=== PATIENT | female | born 1970 | race Caucasian/White ===

== ENCOUNTER → 2016-08-15 | Outpatient (CLI) | payer OTHER ==
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
--- NOTE | 2016-08-15 19:09 | XR ---
EXAMINATION TYPE: XR lumbar spine 2 or 3V DATE OF EXAM: 08/15/2016 6:31 PM COMPARISON: NONE HISTORY: Back pain, trauma TECHNIQUE: 3 views FINDINGS: Lumbar vertebrae abnormal spacing and alignment. Posterior elements are intact. Sacroiliac joints are normal. There are clips from cholecystectomy. IMPRESSION: Negative lumbar spine exam. No fracture.
--- NOTE | 2016-08-15 19:10 | XR ---
EXAMINATION TYPE: XR tibia fibula RT DATE OF EXAM: 08/15/2016 6:31 PM COMPARISON: NONE HISTORY: Pain, trauma. TECHNIQUE: 3 views FINDINGS: I see no fracture nor dislocation. Knee joint and ankle joint appear intact. IMPRESSION: Negative right tibia and fibula exam.
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
== END | disposition home or self-care (01) ==
LOC: RADCTMAIN 17:59
PROVIDERS: ATTEND Nurse Practitioner Family
DX: S19.9XXA Unspecified injury of neck, initial encounter (principal); M79.661 Pain in right lower leg; S39.92XA Unspecified injury of lower back, initial encounter; K76.9 Liver disease, unspecified
CPT/HCPCS: 72050; 72100; 73590; 74177; Q9967

== ENCOUNTER 2016-12-18 03:04 | Emergency (ER) | payer OTHER ==
[2016-12-18 03:11] VITALS: TEMP 97
[2016-12-18] MEDS ORDERED: ASPIRIN 81 MG CHEW PO STA (03:33)
[2016-12-18] MEDS ORDERED: MORPHINE SULFATE 4 MG/ML SYRINGE IV STA (03:38)
[2016-12-18 03:53] LABS: Basophils % (A) 1 %; CH 32.2; CHCM 36.3; Eosinophils # (A) 0.2 k/uL (0-0.7); Eosinophils % (A) 3 %; HCT 42.4 % (34.0-46.0); HDW 3.04; Luc # (Auto) 0.12; Luc % (Auto) 2; Lymphocytes % (A) 16 %; MCH 31.5 pg (25.0-35.0); MCHC 35.4 g/dL (31.0-37.0); MCV 89.2 fL (80.0-100.0); Mean Platelet Volume 7.1; Monocytes # (A) 0.4 k/uL (0-1.0); Monocytes % (A) 6 %; Neutrophils # (A) 4.7 k/uL (1.3-7.7); Neutrophils % (A) 73 %; RBC 4.75 m/uL (3.80-5.40); RDW 13.3 % (11.5-15.5); WBC 6.3 k/uL (3.8-10.6)
[2016-12-18 04:04] LABS: ALT 33 U/L (9-52); AST 20 U/L (14-36); Alkaline Phosphatase 76 U/L (38-126); Anion Gap 12 mmol/L; Blood Urea Nitrogen 14 mg/dL (7-17); Calcium 9.4 mg/dL (8.4-10.2); Carbon Dioxide 24 mmol/L (22-30); Chloride 105 mmol/L (98-107); Glucose 121 mg/dL (74-99); Magnesium 1.9 mg/dL (1.6-2.3); Non-African American GFR(MDRD) >60 (>60 ml/min/1.73 sqM); Sodium 141 mmol/L (137-145); Total Bilirubin 1.5 mg/dL (0.2-1.3)
[2016-12-18 04:10] LABS: Partial Thromboplastin Time 24.4 sec (22.0-30.0); Prothrombin Time 10.3 sec (9.0-12.0)
--- NOTE | 2016-12-18 04:32 | XR ---
EXAM: XR Chest, 2 Views CLINICAL HISTORY: Reason: Chest Pain TECHNIQUE: Frontal and lateral views of the chest. COMPARISON: No relevant prior studies available. FINDINGS: Lungs: Unremarkable. No consolidation. Pleural space: Unremarkable. No pneumothorax. Heart: Unremarkable. No cardiomegaly. Mediastinum: Unremarkable. Bones/joints: Unremarkable. Tubes, lines and devices: Overlying chest leads obscure portion of the chest. IMPRESSION: No acute findings.
--- NOTE | 2016-12-18 04:41 | ED ---
Chest Pain HPI - General Chief Complaint: Chest Pain Stated Complaint: anxiety Time Seen by Provider: 12/18/16 03:32 Source: patient Mode of arrival: ambulatory Limitations: no limitations - History of Present Illness Initial Comments: Patient complains of intermittent chest pain. Nothing makes her symptoms better or worse. She was not doing anything when this began. She took the medication for the symptoms. She denies any recent illnesses or sick contacts. She has no palpitations. She has no lightheadedness or dizziness. She has no pain or swelling in the legs. She has no palpitations. She denies any recent long plane or car rides. She has no nausea or vomiting. She has no diaphoresis. - Related Data Home Medications Medication Instructions Recorded Confirmed LORazepam [Ativan] 1 mg PO DAILY PRN 12/18/16 12/18/16 Allergies Allergy/AdvReac Type Severity Reaction Status Date / Time codeine Allergy Rash/Nightm Verified 12/18/16 03:12 sergio sulfite Allergy Rash/Hives Verified 12/18/16 03:12 Review of Systems ROS Statement: Those systems with pertinent positive or pertinent negative responses have been documented in the HPI. ROS Other: All systems not noted in ROS Statement are negative. EKG Findings - EKG Comments: EKG Findings:: Twelve-lead EKG is obtained, interpreted by me showing ventricular 80 bpm, normal SD interval and QRS complexes, no ST elevation or depression, interpreted by me as normal sinus rhythm. Past Medical History Past Medical History: GERD/Reflux, Neurologic Disorder, Thyroid Disorder Additional Past Medical History / Comment(s): FREQUENT MIGRAINES,. REFLUX MAJOR PAIN IN STOMACH DAILY. Lymphoma History of Any Multi-Drug Resistant Organisms: None Reported Past Surgical History: Cholecystectomy, Tubal Ligation Additional Past Surgical History / Comment(s): colonoscopy,EGD Past Anesthesia/Blood Transfusion Reactions: Postoperative Nausea & Vomiting ( PONV) Additional Past Anesthesia/Blood Transfusion Reaction / Comment(s): PT & PT'S MOM ALSO HAVE HX PONV Past Psychological History: Anxiety, Depression, Panic Disorder Smoking Status: Light tobacco smoker Past Alcohol Use History: Occasional Past Drug Use History: None Reported - Past Family History Father Family Medical History: Cancer General Exam Limitations: no limitations General appearance: alert, in no apparent distress Head exam: Present: atraumatic, normocephalic, normal inspection Eye exam: Present: normal appearance, PERRL, EOMI. Absent: scleral icterus, conjunctival injection, periorbital swelling ENT exam: Present: normal exam, mucous membranes moist Neck exam: Present: normal inspection. Absent: tenderness, meningismus, lymphadenopathy Respiratory exam: Present: normal lung sounds bilaterally. Absent: respiratory distress, wheezes, rales, rhonchi, stridor Cardiovascular Exam: Present: regular rate, normal rhythm, normal heart sounds. Absent: systolic murmur, diastolic murmur, rubs, gallop, clicks GI/Abdominal exam: Present: soft, normal bowel sounds. Absent: distended, tenderness, guarding, rebound, rigid Extremities exam: Present: normal inspection, full ROM, normal capillary refill. Absent: tenderness, pedal edema, joint swelling, calf tenderness Back exam: Present: normal inspection Neurological exam: Present: alert, oriented X3, CN II-XII intact Psychiatric exam: Present: normal affect, normal mood Skin exam: Present: warm, dry, intact, normal color. Absent: rash Course Vital Signs 12/18/16 03:09 Temperature 97.0 F L Pulse Rate 18 L Respiratory 86 H Rate Blood Pressure 141/98 O2 Sat by Pulse 98 Oximetry Chest Pain MDM - MDM Patient complains of intermittent chest pain. It is not related to exertion. She has no shortness of breath. There are no specific exacerbating or relieving factors. Her EKG is normal. Her labs are normal. Her 2 view chest x -ray is normal. I cannot find evidence of any acute emergency condition. She does not require admission to the hospital area and she is stable for outpatient follow-up with her physician. Disposition Clinical Impression: Chest pain Disposition: HOME SELF-CARE Condition: Good Instructions: Chest Pain (ED) Time of Disposition: 04:41
[2016-12-18 04:53] VITALS: BP 133/73; PULSE 87; RESP 16
== END 2016-12-18 05:10 | disposition home or self-care (01) ==
LOC: EC 03:04
DX: R07.9 Chest pain, unspecified (principal); F17.200 Nicotine dependence, unspecified, uncomplicated; Z88.5 Allergy status to narcotic agent; Z88.8 Allergy status to other drugs, medicaments and biological substances; Z53.20 Procedure and treatment not carried out because of patient's decision for unspecified reasons
CPT/HCPCS: 36415; 71020; 80053; 83735; 83880; 84484; 85025; 85610; 85730; 93005; 99285

== ENCOUNTER 2017-05-28 08:48 | Day surgery (SDC) | payer OTHER ==
[2017-05-27 08:49] VITALS: BMI 25.0
[~2017-05-28 08:48] MED LIST: LACTATED RINGERS 1,000 ML IV SCH
[2017-05-28 09:42] VITALS: RESP 16; TEMP 98.2
[2017-05-28] MEDS ORDERED: PROPOFOL 10 MG/ML 20 ML VIAL IV ONE (10:20)
[2017-05-28] MEDS ORDERED: LIDOCAINE 1% INJ 10MG/ML (20 ML MDV) ONE (10:20)
--- NOTE | 2017-05-28 10:48 | P.PCN ---
Date of Procedure: 05/28/17 Procedure(s) Performed: BRIEF HISTORY: Patient is a 46-year-old pleasant white female, scheduled for an elective colonoscopy as a part of the lesion of prior history of colon polyps. Her last colonoscopy was in 2013 and she was noted to have 2 rectal polyps and biopsies revealed MALT lymphoma. She subsequently underwent radiation therapy and she follows with on the regular basis. PROCEDURE PERFORMED: Colonoscopy with snare polypectomy. PREOPERATIVE DIAGNOSIS: Follow-up of rectal MALT lymphoma. IV sedation per Anesthesia. PROCEDURE: After informed consent was obtained, the patient, was brought into the endoscopy unit. IV sedation was administered by Anesthesia under continuous monitoring. Digital rectal examination was normal. Initially the Olympus CF- 160 flexible video colonoscope was then inserted in the rectum, gradually advanced into the cecum without any difficulty. Careful examination was performed as the scope was gradually being withdrawn. Ileocecal valve and the appendiceal orifice were visualized and appeared normal. Prep was excellent. Mucosa of the cecum, ascending colon, transverse colon, descending colon, sigmoid colon, and rectum appeared normal. In the proximal rectum at the 15 cm from the anal verge there was a 7-8 mm polyp removed by snare polypectomy. Retroflexion was performed in the rectum and no lesions were seen. The patient tolerated the procedure well. IMPRESSION: 7-8 mm proximal rectal polyp serous was snare polypectomy Rest of the colon appeared normal. RECOMMENDATIONS: Findings of this examination were discussed with the patient as well as a family. She was advised to follow with the biopsy results. She can have a repeat colonoscopy in 3-5 years.
[2017-05-28 11:28] VITALS: BP 114/72; PULSE 78
== END 2017-05-28 11:26 | disposition home or self-care (01) ==
LOC: ORWHC2ENDO 08:48
PROVIDERS: ATTEND Internal Medicine Gastroenterology
DX: Z12.11 Encounter for screening for malignant neoplasm of colon (principal); D12.8 Benign neoplasm of rectum; Z86.010 Personal history of colon polyps; C88.4 Extranodal marginal zone B-cell lymphoma of mucosa-associated lymphoid tissue [MALT-lymphoma]; Z92.3 Personal history of irradiation; I10 Essential (primary) hypertension; Z87.891 Personal history of nicotine dependence; F41.9 Anxiety disorder, unspecified; K21.9 Gastro-esophageal reflux disease without esophagitis; Z79.899 Other long term (current) drug therapy
CPT/HCPCS: 88305; 45385; J2001; J2704

== ENCOUNTER → 2017-08-17 | Outpatient (CLI) | payer OTHER ==
--- NOTE | 2017-08-17 16:46 | CT ---
EXAMINATION TYPE: CT ChestAbdPelvis w con DATE OF EXAM: 08/17/2017 COMPARISON: 08/15/2016 HISTORY: Follow up for "malt" lymphoma of colon and history of hemangiomas to liver. CT DLP: 767.20 mGycm Automated exposure control for dose reduction was used. CONTRAST: CT scan of the chest, abdomen and pelvis is performed with Oral Contrast and with IV Contrast, patien t injected with 100 mL of Omnipaque 300. FINDINGS: LUNGS: The lungs are grossly clear, there is no concerning parenchymal mass or nodule identified. T here is no pleural effusion or pneumothorax seen. The tracheobronchial tree is patent. MEDIASTINUM: There are no greater than 1 cm hilar or mediastinal lymph nodes. No pericardial effusi on is seen. OTHER: No additional significant abnormality is seen. LIVER/GB: There are multiple intrahepatic nodules with the largest seen in the left lobe of the liver measuring 2.5 x 2.5 cm and stable from the previous exam approximately 4 lesions are seen. All appea r to be stable in size relative to the previous exam. There is incomplete filling of these lesions on delayed imaging. Most likely in the basis of hemangioma but tagged RBC study or MRI suggested. PANCREAS: No significant abnormality is seen. SPLEEN: No significant abnormality is seen. ADRENALS: No significant abnormality is seen. KIDNEYS: No significant abnormality is seen. BOWEL: Gas pattern nonspecific. Significant retained fecal debris within the colon.. LYMPH NODES: No greater than 1 cm abdominal or pelvic lymph nodes are appreciated. OSSEOUS STRUCTURES: No significant abnormality is seen. OTHER: Aorta of normal caliber. Postsurgical change in the pelvis noted IMPRESSION: 1. Hepatic lesions are stable and most typical of hemangioma and could be confirmed with tagged RBC s yissel. However, findings are seen dating back to 2014. Therefore likely related to hemangioma. 2. No pathologic adenopathy
== END | disposition home or self-care (01) ==
LOC: RADCTMAIN 13:22
PROVIDERS: ATTEND Internal Medicine Hematology & Oncology
DX: K76.9 Liver disease, unspecified (principal); D18.03 Hemangioma of intra-abdominal structures
CPT/HCPCS: 71260; 74177; Q9967

== ENCOUNTER 2017-12-14 12:44 | Emergency (ER) | payer OTHER ==
--- NOTE | 2017-12-14 12:43 | CT ---
EXAMINATION TYPE: CT abdomen wo/w con DATE OF EXAM: 12/14/2017 HISTORY: Hematuria, Right lower quadrant pain for 5.[address] DLP: 1510mGycm Automated Exposure Control for Dose Reduction was Utilized. CONTRAST: CT scan of the abdomen is performed without and with IV Contrast, patient injected with 100 ml mL of Isovue 300. COMPARISON: Exams dating back to 06/04/2015. FINDINGS: LUNG BASES: No significant abnormality is appreciated. LIVER/GB: There is redemonstration of multiple hypoattenuated hepatic lesions seen on prior exams shola ing back to 06/04/2015 with stability of size previously demonstrated to represent hemangiomas.. Gall bladder surgically absent. PANCREAS: No significant abnormality is seen. No ductal dilatation. SPLEEN: No significant abnormality is seen. No splenomegaly. ADRENALS: No significant abnormality is seen. No nodularity or thickening. KIDNEYS: There is mild right-sided hydronephrosis and proximal ureteral dilatation. Distal right uret er is not visualized and no obstructing stone is visualized on the given abdomen images. The right ki dney also shows delayed enhancement in comparison to the left that may relate to acute obstruction. BOWEL: No right lower quadrant fat stranding changes are seen. No adenopathy or fluid collection. Wha t appears to be the appendix is air-filled and within normal limits. Terminal ileum is unremarkable. No evidence of dilated bowel. Transverse colon and ascending colon are partially decompressed. No per icolonic fluid collection in its visualized portions. LYMPH NODES: No greater than 1cm abdominal or pelvic lymph nodes are appreciated. OSSEOUS STRUCTURES: Osseous structures are grossly intact. OTHER: There is diastases recti. IMPRESSION: Mild right hydroureteronephrosis and altered physiology of the right kidney both most com patible with acute obstruction although the pelvis is not performed and distal ureter is not evaluate d for obstructing calculus or mass. No CT evidence of acute appendicitis.
[2017-12-14] MEDS ORDERED: MORPHINE SULFATE 4 MG/ML SYRINGE IVP STA (13:20)
[2017-12-14] MEDS ORDERED: ONDANSETRON 4 MG/2 ML VIAL IVP STA (13:20)
[2017-12-14 13:22] LABS: Basophils % (A) 0 %; Eosinophils # (A) 0.1 k/uL (0-0.7); Eosinophils % (A) 1 %; HCT 45.2 % (34.0-46.0); HGB 15.8 gm/dL (11.4-16.0); Lymphocytes # (A) 0.8 k/uL (1.0-4.8); Lymphocytes % (A) 6 %; MCH 30.4 pg (25.0-35.0); MCHC 34.9 g/dL (31.0-37.0); MCV 87.3 fL (80.0-100.0); Mean Platelet Volume 7.8; Monocytes # (A) 0.4 k/uL (0-1.0); Monocytes % (A) 3 %; Neutrophils # (A) 13.1 k/uL (1.3-7.7); Neutrophils % (A) 90 %; Platelet Count 277 k/uL (150-450); RBC 5.18 m/uL (3.80-5.40); RDW 12.6 % (11.5-15.5); WBC 14.5 k/uL (3.8-10.6)
[2017-12-14 13:27] LABS: Appearance,Urine Clear (Clear); Bacteria,Urine Rare /hpf; Bilirubin,Urine Negative (Negative); Blood,Urine Moderate (Negative); Color,Urine Yellow; Glucose,Urine (UA) Negative (Negative); Ketones,Urine 1+ (Negative); Leukocyte Esterase,Urine Negative (Negative); Mucus,Urine Rare /hpf; Nitrite,Urine Negative (Negative); Protein,Urine 2+ (Negative); RBC,Urine 12 /hpf (0-5); Squamous Epithelial Cell,Urine 3 /hpf (0-4); WBC,Urine <1 /hpf (0-5)
[2017-12-14 13:30] LABS: Specific Gravity,Urine >1.050 (1.001-1.035)
[2017-12-14 13:40] LABS: Albumin 4.6 g/dL (3.5-5.0); Calcium 10.4 mg/dL (8.4-10.2); Potassium 4.3 mmol/L (3.5-5.1); Total Bilirubin 1.4 mg/dL (0.2-1.3); Total Protein 7.1 g/dL (6.3-8.2)
--- NOTE | 2017-12-14 13:45 | ED ---
Abdominal Pain HPI - General Chief Complaint: Abdominal Pain Time Seen by Provider: 12/14/17 13:11 Source: patient, RN notes reviewed Mode of arrival: ambulatory Limitations: no limitations - History of Present Illness Initial Comments: This a 47-year-old female presents emergency Department chief complaint right flank pain. Patient states pain started this morning. Patient states that she went to PCPs office to ordered a CT of her abdomen. Patient had complete the CT at the hospital and was sent here for further evaluation. CT shows obstructing type pattern on the right kidney no known evaluation of distal ureter secondary to no CT of the pelvis. Patient admits to some nausea no vomiting no diarrhea no constipation. Has no history of kidney stones denies any dysuria or urinary frequency. Patient states nothing makes the pain feel better or worse at this time. - Related Data Home Medications Medication Instructions Recorded Confirmed Diltiazem HCl [Cartia Xt] 120 mg PO HS 05/27/17 12/14/17 LORazepam [Ativan] 2 mg PO HS 05/27/17 12/14/17 Almotriptan Malate [Axert] 12.5 mg PO DAILY PRN 12/14/17 12/14/17 Dextroamphetamine/Amphetamine 30 mg PO QAM 12/14/17 12/14/17 [Adderall Xr] Previous Rx's Medication Instructions Recorded Hydrocodone/Acetaminophen [[place] 1 tab PO Q6HR PRN #12 tab 12/14/17 5-325] Ibuprofen [Motrin] 600 mg PO Q8HR PRN #30 tab 12/14/17 Ondansetron Odt [Zofran Odt] 4 mg PO Q8HR PRN #10 tab 12/14/17 Tamsulosin [Flomax] 0.4 mg PO DAILY #7 cap 12/14/17 Allergies Allergy/AdvReac Type Severity Reaction Status Date / Time Beta-Blockers Allergy Rash/Hives Verified 12/14/17 13:19 (Beta-Adrenergic Bloc codeine Allergy Rash/Nightm Verified 12/14/17 13:19 sergio Sulfa (Sulfonamide Allergy Rash/Hives Verified 12/14/17 13:19 Antibiotics) sulfite Allergy Rash/Hives Verified 12/14/17 13:19 Review of Systems ROS Statement: Those systems with pertinent positive or pertinent negative responses have been documented in the HPI. ROS Other: All systems not noted in ROS Statement are negative. Past Medical History Past Medical History: Cancer, GERD/Reflux, Hypertension, Liver Disease, Neurologic Disorder, Thyroid Disorder Additional Past Medical History / Comment(s): MIGRAINES, Lymphoma, 4 liver hemagiomas, chronic UTI's History of Any Multi-Drug Resistant Organisms: None Reported Past Surgical History: Cholecystectomy, Tubal Ligation Additional Past Surgical History / Comment(s): colonoscopy,EGD, lasik eye surgery Past Anesthesia/Blood Transfusion Reactions: Postoperative Nausea & Vomiting ( PONV) Additional Past Anesthesia/Blood Transfusion Reaction / Comment(s): PT & PT'S MOM ALSO HAVE HX PONV Past Psychological History: Anxiety, Depression, Panic Disorder Smoking Status: Former smoker Past Alcohol Use History: Daily Past Drug Use History: None Reported - Past Family History Father Family Medical History: Cancer Mother Family Medical History: Deep Vein Thrombosis (DVT) General Exam Limitations: no limitations General appearance: alert, in no apparent distress, other (Patient appears uncomfortable) Head exam: Present: atraumatic, normocephalic, normal inspection Respiratory exam: Present: normal lung sounds bilaterally. Absent: respiratory distress, wheezes, rales, rhonchi, stridor Cardiovascular Exam: Present: normal rhythm, tachycardia, normal heart sounds. Absent: systolic murmur, diastolic murmur, rubs, gallop, clicks GI/Abdominal exam: Present: soft, tenderness (Mild right-sided/right flank), normal bowel sounds. Absent: distended, guarding, rebound, rigid Back exam: Present: CVA tenderness (R). Absent: CVA tenderness (L) Skin exam: Present: warm, dry, intact, normal color. Absent: rash Course Vital Signs 12/14/17 12:47 Temperature 97.1 F L Pulse Rate 104 H Respiratory 20 Rate Blood Pressure 145/84 O2 Sat by Pulse 100 Oximetry Medical Decision Making - Medical Decision Making 47-year-old female presented for right flank pain. Patient outpatient CT showed possible obstructing process consider stone. Patient ultrasound consistent with mild higher nephrosis and small calculus. Patient states that she urinated here in emergency department states that all over since resolved. Patient we discharged with pain medication, antiemetics, Flomax. She'll follow up with urology and return for any worsening symptoms. - Lab Data Result diagrams: 12/14/17 13:02 12/14/17 13:02 Lab Results 12/14/17 12/14/17 12/14/17 Range/Units 13:02 13:02 13:02 WBC 14.5 H (3.8-10.6) k/uL RBC 5.18 (3.80-5.40) m/uL Hgb 15.8 (11.4-16.0) gm/dL Hct 45.2 (34.0-46.0) % MCV 87.3 (80.0-100.0) fL MCH 30.4 (25.0-35.0) pg MCHC 34.9 (31.0-37.0) g/dL RDW 12.6 (11.5-15.5) % Plt Count 277 (150-450) k/uL Neutrophils % 90 % Lymphocytes % 6 % Monocytes % 3 % Eosinophils % 1 % Basophils % 0 % Neutrophils # 13.1 H (1.3-7.7) k/uL Lymphocytes # 0.8 L (1.0-4.8) k/uL Monocytes # 0.4 (0-1.0) k/uL Eosinophils # 0.1 (0-0.7) k/uL Basophils # 0.0 (0-0.2) k/uL Sodium 137 (137-145) mmol/L Potassium 4.3 (3.5-5.1) mmol/L Chloride 101 (98-107) mmol/L Carbon Dioxide 22 (22-30) mmol/L Anion Gap 14 mmol/L BUN 16 (7-17) mg/dL Creatinine 0.90 (0.52-1.04) mg/dL Est GFR (CKD-EPI)AfAm 89 (>60 ml/min/1.73 sqM) Est GFR (CKD-EPI)NonAf 77 (>60 ml/min/1.73 sqM) Glucose 126 H (74-99) mg/dL Calcium 10.4 H (8.4-10.2) mg/dL Total Bilirubin 1.4 H (0.2-1.3) mg/dL AST 22 (14-36) U/L ALT 30 (9-52) U/L Alkaline Phosphatase 94 (38-126) U/L Total Protein 7.1 (6.3-8.2) g/dL Albumin 4.6 (3.5-5.0) g/dL Lipase (23-300) U/L Urine Color Yellow Urine Appearance Clear (Clear) Urine pH 6.0 (5.0-8.0) Ur Specific [place] >1.050 H (1.001-1.035) Urine Protein 2+ H (Negative) Urine Glucose (UA) Negative (Negative) Urine Ketones 1+ H (Negative) Urine Blood Moderate H (Negative) Urine Nitrite Negative (Negative) Urine Bilirubin Negative (Negative) Urine Urobilinogen 2.0 (<2.0) mg/dL Ur Leukocyte Esterase Negative (Negative) Urine RBC 12 H (0-5) /hpf Urine WBC <1 (0-5) /hpf Ur Squamous Epith Cells 3 (0-4) /hpf Urine Bacteria Rare H (None) /hpf Urine Mucus Rare H (None) /hpf 12/14/17 Range/Units 13:02 WBC (3.8-10.6) k/uL RBC (3.80-5.40) m/uL Hgb (11.4-16.0) gm/dL Hct (34.0-46.0) % MCV (80.0-100.0) fL MCH (25.0-35.0) pg MCHC (31.0-37.0) g/dL RDW (11.5-15.5) % Plt Count (150-450) k/uL Neutrophils % % Lymphocytes % % Monocytes % % Eosinophils % % Basophils % % Neutrophils # (1.3-7.7) k/uL Lymphocytes # (1.0-4.8) k/uL Monocytes # (0-1.0) k/uL Eosinophils # (0-0.7) k/uL Basophils # (0-0.2) k/uL Sodium (137-145) mmol/L Potassium (3.5-5.1) mmol/L Chloride (98-107) mmol/L Carbon Dioxide (22-30) mmol/L Anion Gap mmol/L BUN (7-17) mg/dL Creatinine (0.52-1.04) mg/dL Est GFR (CKD-EPI)AfAm (>60 ml/min/1.73 sqM) Est GFR (CKD-EPI)NonAf (>60 ml/min/1.73 sqM) Glucose (74-99) mg/dL Calcium (8.4-10.2) mg/dL Total Bilirubin (0.2-1.3) mg/dL AST (14-36) U/L ALT (9-52) U/L Alkaline Phosphatase (38-126) U/L Total Protein (6.3-8.2) g/dL Albumin (3.5-5.0) g/dL Lipase 132 (23-300) U/L Urine Color Urine Appearance (Clear) Urine pH (5.0-8.0) Ur Specific [place] (1.001-1.035) Urine Protein (Negative) Urine Glucose (UA) (Negative) Urine Ketones (Negative) Urine Blood (Negative) Urine Nitrite (Negative) Urine Bilirubin (Negative) Urine Urobilinogen (<2.0) mg/dL Ur Leukocyte Esterase (Negative) Urine RBC (0-5) /hpf Urine WBC (0-5) /hpf Ur Squamous Epith Cells (0-4) /hpf Urine Bacteria (None) /hpf Urine Mucus (None) /hpf Disposition Clinical Impression: Ureteral calculi, Hematuria, Flank pain Disposition: HOME SELF-CARE Condition: Stable Instructions: Kidney Stones (ED) Additional Instructions: Please return to the Emergency Department if symptoms worsen or any other concerns. Prescriptions: Hydrocodone/Acetaminophen [[place] 5-325] 1 tab PO Q6HR PRN #12 tab PRN Reason: Pain Ibuprofen [Motrin] 600 mg PO Q8HR PRN #30 tab PRN Reason: Pain Ondansetron Odt [Zofran Odt] 4 mg PO Q8HR PRN #10 tab PRN Reason: Nausea Tamsulosin [Flomax] 0.4 mg PO DAILY #7 cap Is patient prescribed a controlled substance at d/c from ED?: Yes If prescribed controlled substance>3 days was MAPS reviewed?: No When asked, does pt state using other controlled substances?: Yes Referrals: Irinoe Brown MD [Primary Care Provider] - 1-2 days Herman Graham MD [STAFF PHYSICIAN] - 1-2 days Time of Disposition: 14:55
--- NOTE | 2017-12-14 14:30 | US ---
EXAMINATION TYPE: US kidneys/renal and bladder DATE OF EXAM: 12/14/2017 COMPARISON: CT abdomen earlier today CLINICAL HISTORY: Pain. EXAM MEASUREMENTS: Right Kidney: 9.9 x 5.3 x 4.6 cm Left Kidney: 11.4 x 4.4 x 4.9 cm Right Kidney: There is an echogenic foci measuring 0.3 x 0.2 x 0.2cm, Inferior pole partially obscur ed by bowel gas, measures smaller than left, this may be due to obscuring bowel gas Left Kidney: No hydronephrosis or masses seen Bladder: not fully distended Bilateral Jets seen: Right jet seen There is stable mild right-sided hydronephrosis. There is no left-sided hydronephrosis Technologist m arks 3 mm hyperechoic focus mid pole level right kidney, no corresponding calculus is seen on CT. No masses are identified on images saved. The urinary bladder is not greatly distended. Bilateral ure teral jets are not seen. IMPRESSION: Persistent mild right-sided hydronephrosis, suspect partially obstructing tiny distal right ureter ca lculus given visualization of distal right ureter jet.
[2017-12-14 15:05] VITALS: BP 137/87; PULSE 87; RESP 18; TEMP 98.7
== END 2017-12-14 15:05 | disposition home or self-care (01) ==
LOC: EC 12:44
DX: N20.1 Calculus of ureter (principal); R00.0 Tachycardia, unspecified; I10 Essential (primary) hypertension; F41.0 Panic disorder [episodic paroxysmal anxiety]; Z87.891 Personal history of nicotine dependence; Z79.899 Other long term (current) drug therapy; Z88.2 Allergy status to sulfonamides; Z88.5 Allergy status to narcotic agent; Z88.8 Allergy status to other drugs, medicaments and biological substances; Z91.048 Other nonmedicinal substance allergy status; Z90.49 Acquired absence of other specified parts of digestive tract
CPT/HCPCS: 36415; 80053; 83690; 85025; 81001; 87086; 76770; 74170; 99284; 96374; 96375; J2270; J2405; Q9967

== ENCOUNTER → 2017-12-16 | Outpatient (CLI) | payer OTHER ==
--- NOTE | 2017-12-16 09:25 | XR ---
EXAMINATION TYPE: XR foot complete RT DATE OF EXAM: 12/16/2017 COMPARISON: NONE HISTORY: Pain TECHNIQUE: Three views are submitted. FINDINGS: The osseous structures are intact. There is no acute fracture or dislocation. Mild arthropathy of the first MTP joint. IMPRESSION: 1. No acute fracture or dislocation. If symptoms persist, follow-up exam in 7 to 10 days could be ob tained.
--- NOTE | 2017-12-16 09:39 | XR ---
EXAMINATION TYPE: XR KUB DATE OF EXAM: 12/16/2017 COMPARISON: Ultrasound 12/14/2017, CT scan 12/14/2017 HISTORY: Pain TECHNIQUE: One view abdominal series FINDINGS: The osseous structures are intact. The bowel gas pattern is nonspecific. Postsurgical change right u pper quadrant and the pelvis. Extensive retained fecal debris throughout the colon. IMPRESSION: 1. Nonspecific abdomen. Correlate for constipation. 2. No suspicious appearing calcifications identified. Note is made there is extensive retained fecal debris which could obscure the bilateral renal outlines. Renal stone involving the lower pole the rig ht kidney noted by recent CT scan is likely obscured by bowel content.
== END | disposition home or self-care (01) ==
LOC: RADXRMAIN 08:35
PROVIDERS: ATTEND Urology
DX: K59.00 Constipation, unspecified (principal); E83.52 Hypercalcemia; M79.671 Pain in right foot; N13.30 Unspecified hydronephrosis
CPT/HCPCS: 36415; 74018; 82310; 83970

== ENCOUNTER 2018-06-02 09:36 | Day surgery (SDC) | payer OTHER ==
[2018-05-31 17:11] VITALS: BMI 26.6
[~2018-06-02 09:36] MED LIST changes: +LIDOCAINE 1% 20 ML VIAL (10MG/ML) FOR IV START INTRADERMA PRN
[2018-06-02 10:29] VITALS: RESP 16; TEMP 98
[2018-06-02] MEDS ORDERED: PROPOFOL 10 MG/ML 20 ML VIAL IV ONE (10:59)
--- NOTE | 2018-06-02 11:17 | P.PCN ---
Date of Procedure: 06/02/18 Procedure(s) Performed: BRIEF HISTORY: Patient is a 47-year-old pleasant white female scheduled for an elective colonoscopy as a part of change in bowel habits. Lately she is been having alternating diarrhea and constipation. 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 She scattered for surveillance colonoscopy today. PROCEDURE PERFORMED: Colonoscopy. PREOPERATIVE DIAGNOSIS: Follow-up rectal MALT lymphoma, change in bowel habits. IV sedation per Anesthesia. PROCEDURE: After informed consent was obtained, the patient, was brought into the endoscopy unit. IV sedation was administered by Anesthesia under continuous monitoring. Digital rectal examination was normal. Initially the Olympus CF- 160 flexible video colonoscope was then inserted in the rectum, gradually advanced into the cecum without any difficulty. Careful examination was performed as the scope was gradually being withdrawn. Ileocecal valve and the appendiceal orifice were visualized and appeared normal. Prep was excellent. Mucosa of the cecum, ascending colon, transverse colon, descending colon, sigmoid colon, and rectum appeared normal. Scattered sigmoid diverticulosis seen Retroflexion was performed in the rectum and no lesions were seen. The patient tolerated the procedure well. IMPRESSION: Normal-appearing colon from rectum to cecum with no evidence of colorectal neoplasia. Scattered sigmoid diverticulosis RECOMMENDATIONS: Findings of this examination were discussed with the patient last a family. She was advised to be a high-fiber diet and take fiber supplements a regular basis. She can have a repeat colonoscopy in 3 years.
[2018-06-02 11:53] VITALS: BP 102/74; PULSE 72
== END 2018-06-02 12:14 | disposition home or self-care (01) ==
LOC: ORWHC2ENDO 09:36
PROVIDERS: ATTEND Internal Medicine Gastroenterology
DX: K57.30 Diverticulosis of large intestine without perforation or abscess without bleeding (principal); K21.9 Gastro-esophageal reflux disease without esophagitis; Z79.899 Other long term (current) drug therapy; I10 Essential (primary) hypertension; Z87.891 Personal history of nicotine dependence; Z85.72 Personal history of non-Hodgkin lymphomas; G43.909 Migraine, unspecified, not intractable, without status migrainosus; Z88.5 Allergy status to narcotic agent; Z88.2 Allergy status to sulfonamides
CPT/HCPCS: 45378; J2704

== ENCOUNTER → 2018-07-20 | Outpatient (CLI) | payer OTHER ==
--- NOTE | 2018-07-20 13:17 | CT ---
EXAMINATION TYPE: CT ChestAbdPelvis w con DATE OF EXAM: 07/20/2018 INDICATION: Non follicular lymphoma COMPARISON: 12/14/2017 CT DLP: 667.9 mGycm CONTRAST: Performed with Oral Contrast and with IV Contrast, patient injected with 100 mL of Isovue 300. TECHNIQUE: Axial images at 5 mm thick sections. Reconstructed images in the coronal plane. Delayed images through the kidneys. FINDINGS: CT CHEST: Portion of the thyroid visualized is normal. This has intense uptake of the contrast and more subtle abnormalities may not be visualized. No suspicious lung nodules or focal infiltrates are present. No enlarged mediastinal or hilar adenopathy is evident. The ascending aorta diameter at the level of the main pulmonary artery is 3.0 cm. The main pulmonary artery diameter at the bifurcation is 2.[address] ABDOMEN: Liver: There are multiple hypodensities scattered within the right lobe liver. These appear to has so me central enhancement on delayed images. Neoplasm should be considered. Example images include 2.7 c m medial right lobe liver and mid anterior right lobe liver measuring 1.5 cm, series 3 image 50. Mid right lobe liver measuring 1.4 cm and 0.6 cm lateral right mid lobe liver, Series 3 image 51. These w ere present previously, interval growth is not evident. Spleen: Normal Pancreas: Normal Adrenal glands: The adrenal glands are normal. Gallbladder: Surgically absent Kidneys: No masses are evident. No hydronephrosis is present. No cysts are present. Delayed images were obtained through the kidneys, which remain unremarkable. Aorta: Normal Inferior vena cava: Normal. CT PELVIS: Loops of bowel within the abdomen and pelvis are normal. There are loops of bowel which are incom pletely distended or lack oral contrast limiting their evaluation. Appendix: Normal as visualized. Urinary bladder: Normal. Genitourinary structures: Uterus and adnexal regions appear normal. Osseous structures: No suspicious lytic or sclerotic lesions. Sacroiliac joint degenerative changes a nd vacuum phenomenon is present. Mild facet hypertrophy is in the lower lumbar spine. IMPRESSIONS: 1. Stable Scattered hypodensities within the liver. These were present previously 12/14/2017. Enhanceme nt pattern is not conclusive but could be related to hemangiomas.
== END | disposition home or self-care (01) ==
LOC: RADCTMAIN 06:00
PROVIDERS: ATTEND Internal Medicine Hematology & Oncology
DX: R93.2 Abnormal findings on diagnostic imaging of liver and biliary tract (principal); C83.80 Other non-follicular lymphoma, unspecified site
CPT/HCPCS: 71260; 74177; Q9967

== ENCOUNTER 2019-04-18 12:51 | Emergency (ER) | payer BC ==
[2019-04-18 12:56] VITALS: TEMP 97.9
--- NOTE | 2019-04-18 13:25 | ED ---
Dizziness HPI - General Chief Complaint: Dizziness Stated Complaint: dizziness/lethargy/heart burn Time Seen by Provider: 04/18/19 12:57 Source: patient, RN notes reviewed, old records reviewed Mode of arrival: wheelchair Limitations: no limitations - History of Present Illness Initial Comments: This is a 48-year-old female to the ER for evaluation today. States she is presenting for evaluation regards to dizziness and not feeling well. Patient states symptoms began yesterday morning to try to get out of bed just felt fatigued and off balance. The medication ear infection stay in bed all day and symptoms persisted today. Patient has no history of heart disease no history of CVA. No high blood pressure normal cholesterol no diabetes. Patient this time is without chest pain or shortness of breath. She does have history of migraines with no current headache. No recent change in medications. Patient does also has some anxiety issues and some indigestion which she has now. Surgical history significant for gallbladder disease and she does have some abdominal pain but nothing significant. No fevers nausea vomiting or diarrhea. No recent trauma no travel history or sick contacts. No drugs or alcohol MD Complaint: dizziness, other (Fatigue) -: days(s) Timing: gradual onset, awoke with symptoms Description: lightheadedness, off-balance History of Same: No Severity: mild Improves With: nothing Worsens With: nothing Associated Symptoms: malaise, weakness - Related Data Home Medications Medication Instructions Recorded Confirmed Diltiazem HCl [Cartia Xt] 120 mg PO HS 05/27/17 04/18/19 LORazepam [Ativan] 2 mg PO HS 05/27/17 04/18/19 Almotriptan Malate [Axert] 12.5 mg PO DAILY PRN 12/14/17 04/18/19 Dextroamphetamine/Amphetamine 30 mg PO QAM 12/14/17 04/18/19 [Adderall Xr] Allergies Allergy/AdvReac Type Severity Reaction Status Date / Time Beta-Blockers Allergy Rash/Hives Verified 04/18/19 12:55 (Beta-Adrenergic Bloc codeine Allergy Rash/Nightm Verified 04/18/19 12:55 sergio Sulfa (Sulfonamide Allergy Rash/Hives Verified 04/18/19 12:55 Antibiotics) sulfite Allergy Rash/Hives Verified 04/18/19 12:55 Review of Systems ROS Statement: Those systems with pertinent positive or pertinent negative responses have been documented in the HPI. ROS Other: All systems not noted in ROS Statement are negative. Past Medical History Past Medical History: Cancer, GERD/Reflux, Hypertension, Liver Disease, Thyroid Disorder Additional Past Medical History / Comment(s): Lymphoma with radiation 2013; MIGRAINES,4 liver hemagiomas, chronic UTI's History of Any Multi-Drug Resistant Organisms: None Reported Past Surgical History: Cholecystectomy, Tubal Ligation Additional Past Surgical History / Comment(s): colonoscopy,EGD, lasik eye surgery Past Anesthesia/Blood Transfusion Reactions: Postoperative Nausea & Vomiting (PONV) Additional Past Anesthesia/Blood Transfusion Reaction / Comment(s): PT & PT'S MOM ALSO HAVE HX PONV Past Psychological History: Anxiety, Depression, Panic Disorder Smoking Status: Current every day smoker Past Alcohol Use History: Occasional Past Drug Use History: Marijuana - Past Family History Father Family Medical History: Cancer Mother Family Medical History: Deep Vein Thrombosis (DVT) General Exam Limitations: no limitations General appearance: alert, in no apparent distress, anxious Head exam: Present: atraumatic, normocephalic, normal inspection Eye exam: Present: normal appearance, PERRL, EOMI. Absent: scleral icterus, conjunctival injection, periorbital swelling ENT exam: Present: normal exam, mucous membranes moist Neck exam: Present: normal inspection. Absent: tenderness, meningismus, lymphadenopathy Respiratory exam: Present: normal lung sounds bilaterally. Absent: respiratory distress, wheezes, rales, rhonchi, stridor Cardiovascular Exam: Present: normal rhythm, tachycardia, normal heart sounds. Absent: systolic murmur, diastolic murmur, rubs, gallop, clicks GI/Abdominal exam: Present: soft, normal bowel sounds. Absent: distended, tenderness, guarding, rebound, rigid Extremities exam: Present: normal inspection, full ROM, normal capillary refill. Absent: tenderness, pedal edema, joint swelling, calf tenderness Back exam: Present: normal inspection Neurological exam: Present: alert, oriented X3, CN II-XII intact Psychiatric exam: Present: normal affect, normal mood Skin exam: Present: warm, dry, intact, normal color. Absent: rash Course Vital Signs 04/18/19 04/18/19 04/18/19 12:53 13:04 14:11 Temperature 97.9 F Pulse Rate 114 H 111 H Respiratory 19 16 Rate Blood Pressure 157/106 148/106 148/106 O2 Sat by Pulse 100 100 98 Oximetry 04/18/19 15:29 Temperature Pulse Rate 86 Respiratory 15 Rate Blood Pressure 139/86 O2 Sat by Pulse 99 Oximetry - Reevaluation(s) Reevaluation #1: 04/18/19 13:25 Medical records reviewed Reevaluation #2: 04/18/19 15:34 Patient with multiple nonspecific symptoms no current chest pain or shortness of breath Reevaluation #3: 04/18/19 15:35 Patient is ambulatory here without difficulty Reevaluation #4: 04/18/19 15:36 Patient's to keep stress test scheduled tomorrow EKG Findings - EKG Comments: EKG Findings:: EKG shows sinus tachycardia rate of 106, W[place] 132, QRS 78, QTc 467 Medical Decision Making - Medical Decision Making 48 female the ER for evaluation. Patient presents today for evaluation of dizziness. Patient is without any neurological findings on exam. No chest pain or shortness of breath EKG and labwork is normal. Patient can be discharged - Lab Data Result diagrams: 04/18/19 13:12 04/18/19 13:12 Lab Results 04/18/19 04/18/19 04/18/19 Range/Units 13:12 13:12 13:12 WBC 7.2 (3.8-10.6) k/uL RBC 5.18 (3.80-5.40) m/uL Hgb 16.4 H (11.4-16.0) gm/dL Hct 46.8 H (34.0-46.0) % MCV 90.4 (80.0-100.0) fL MCH 31.7 (25.0-35.0) pg MCHC 35.1 (31.0-37.0) g/dL RDW 14.7 (11.5-15.5) % Plt Count 229 (150-450) k/uL Neutrophils % 77 % Lymphocytes % 15 % Monocytes % 4 % Eosinophils % 2 % Basophils % 1 % Neutrophils # 5.6 (1.3-7.7) k/uL Lymphocytes # 1.1 (1.0-4.8) k/uL Monocytes # 0.3 (0-1.0) k/uL Eosinophils # 0.1 (0-0.7) k/uL Basophils # 0.1 (0-0.2) k/uL PT (9.0-12.0) sec INR (<1.2) APTT (22.0-30.0) sec D-Dimer (<0.60) mg/L FEU Sodium 139 (137-145) mmol/L Potassium 3.8 (3.5-5.1) mmol/L Chloride 103 (98-107) mmol/L Carbon Dioxide 27 (22-30) mmol/L Anion Gap 9 mmol/L BUN 13 (7-17) mg/dL Creatinine 0.68 (0.52-1.04) mg/dL Est GFR (CKD-EPI)AfAm >90 (>60 ml/min/1.73 sqM) Est GFR (CKD-EPI)NonAf >90 (>60 ml/min/1.73 sqM) Glucose 94 (74-99) mg/dL Calcium 9.6 (8.4-10.2) mg/dL Phosphorus 2.7 (2.5-4.5) mg/dL Magnesium 2.0 (1.6-2.3) mg/dL Total Bilirubin 0.7 (0.2-1.3) mg/dL AST 18 (14-36) U/L ALT 23 (9-52) U/L Alkaline Phosphatase 84 (38-126) U/L Creatine Kinase 37 (30-135) U/L CK-MB (CK-2) 0.6 (0.0-2.4) ng/mL Troponin I <0.012 (0.000-0.034) ng/mL Total Protein 7.5 (6.3-8.2) g/dL Albumin 4.6 (3.5-5.0) g/dL 04/18/19 04/18/19 Range/Units 13:12 13:12 WBC (3.8-10.6) k/uL RBC (3.80-5.40) m/uL Hgb (11.4-16.0) gm/dL Hct (34.0-46.0) % MCV (80.0-100.0) fL MCH (25.0-35.0) pg MCHC (31.0-37.0) g/dL RDW (11.5-15.5) % Plt Count (150-450) k/uL Neutrophils % % Lymphocytes % % Monocytes % % Eosinophils % % Basophils % % Neutrophils # (1.3-7.7) k/uL Lymphocytes # (1.0-4.8) k/uL Monocytes # (0-1.0) k/uL Eosinophils # (0-0.7) k/uL Basophils # (0-0.2) k/uL PT 9.4 (9.0-12.0) sec INR 0.9 (<1.2) APTT 24.0 (22.0-30.0) sec D-Dimer 0.30 (<0.60) mg/L FEU Sodium (137-145) mmol/L Potassium (3.5-5.1) mmol/L Chloride (98-107) mmol/L Carbon Dioxide (22-30) mmol/L Anion Gap mmol/L BUN (7-17) mg/dL Creatinine (0.52-1.04) mg/dL Est GFR (CKD-EPI)AfAm (>60 ml/min/1.73 sqM) Est GFR (CKD-EPI)NonAf (>60 ml/min/1.73 sqM) Glucose (74-99) mg/dL Calcium (8.4-10.2) mg/dL Phosphorus (2.5-4.5) mg/dL Magnesium (1.6-2.3) mg/dL Total Bilirubin (0.2-1.3) mg/dL AST (14-36) U/L ALT (9-52) U/L Alkaline Phosphatase (38-126) U/L Creatine Kinase (30-135) U/L CK-MB (CK-2) (0.0-2.4) ng/mL Troponin I (0.000-0.034) ng/mL Total Protein (6.3-8.2) g/dL Albumin (3.5-5.0) g/dL Disposition Clinical Impression: Dizziness Disposition: HOME SELF-CARE Condition: Good Instructions (If sedation given, give patient instructions): Dizziness (ED) Is patient prescribed a controlled substance at d/c from ED?: No Referrals: Reginaldo Johnson Jr, DO [Primary Care Provider] - 1-2 days
[2019-04-18] MEDS ORDERED: ONDANSETRON 4 MG/2 ML VIAL IVP STA (14:03)
[2019-04-18] MEDS ORDERED: SODIUM CHLORIDE 0.9% 1,000 ML IV STA (14:03)
[2019-04-18 14:15] LABS: Basophils # (A) 0.1 k/uL (0-0.2); Basophils % (A) 1 %; Eosinophils # (A) 0.1 k/uL (0-0.7); Eosinophils % (A) 2 %; HCT 46.8 % (34.0-46.0); HGB 16.4 gm/dL (11.4-16.0); Lymphocytes # (A) 1.1 k/uL (1.0-4.8); Lymphocytes % (A) 15 %; MCH 31.7 pg (25.0-35.0); MCHC 35.1 g/dL (31.0-37.0); MCV 90.4 fL (80.0-100.0); Monocytes # (A) 0.3 k/uL (0-1.0); Monocytes % (A) 4 %; Neutrophils # (A) 5.6 k/uL (1.3-7.7); Neutrophils % (A) 77 %; Platelet Count 229 k/uL (150-450); RBC 5.18 m/uL (3.80-5.40); RDW 14.7 % (11.5-15.5); WBC 7.2 k/uL (3.8-10.6)
[2019-04-18 14:23] LABS: ALT 23 U/L (9-52); AST 18 U/L (14-36); African American GFR (CKD) >90 (>60 ml/min/1.73 sqM); Albumin 4.6 g/dL (3.5-5.0); Alkaline Phosphatase 84 U/L (38-126); Anion Gap 9 mmol/L; Blood Urea Nitrogen 13 mg/dL (7-17); Calcium 9.6 mg/dL (8.4-10.2); Carbon Dioxide 27 mmol/L (22-30); Chloride 103 mmol/L (98-107); Creatine Kinase 37 U/L (30-135); Glucose 94 mg/dL (74-99); INR 0.9 (<1.2); Phosphorus 2.7 mg/dL (2.5-4.5); Potassium 3.8 mmol/L (3.5-5.1); Prothrombin Time 9.4 sec (9.0-12.0); Sodium 139 mmol/L (137-145); Total Bilirubin 0.7 mg/dL (0.2-1.3); Total Protein 7.5 g/dL (6.3-8.2)
[2019-04-18 14:45] LABS: Creatine Kinase MB 0.6 ng/mL (0.0-2.4); Troponin I <0.012 ng/mL (0.000-0.034)
[2019-04-18 15:30] VITALS: BP 139/86
[2019-04-18 15:48] VITALS: PULSE 85; RESP 16
== END 2019-04-18 15:44 | disposition home or self-care (01) ==
LOC: EC 12:51
DX: R42 Dizziness and giddiness (principal); R00.0 Tachycardia, unspecified; R53.1 Weakness; R53.81 Other malaise; K30 Functional dyspepsia; R10.9 Unspecified abdominal pain; R53.83 Other fatigue; I10 Essential (primary) hypertension; F41.9 Anxiety disorder, unspecified; F17.200 Nicotine dependence, unspecified, uncomplicated; Z88.2 Allergy status to sulfonamides; Z88.5 Allergy status to narcotic agent; Z88.8 Allergy status to other drugs, medicaments and biological substances; Z91.02 Food additives allergy status; Z79.899 Other long term (current) drug therapy; Z90.49 Acquired absence of other specified parts of digestive tract
CPT/HCPCS: 99284; 96374; 96361 ×2; 36415; 93005; 85379; 80053; 82550; 82553; 83735; 84100; 84484; 85025; 85610; 85730; J2405

== ENCOUNTER → 2019-04-19 | Outpatient (CLI) | payer BC ==
--- NOTE | 2019-04-19 12:32 | ECHOS ---
STRESS ECHOCARDIOGRAM DATE OF SERVICE: 04/19/2019 INDICATIONS: Chest pain. MEDICATIONS: BASELINE HEART RATE: 77 BASELINE BLOOD PRESSURE: 120/83 MAXIMUM HEART RATE: 165 MAXIMUM BLOOD PRESSURE: 184/90 85% MPHR: 146 100% MPHR: 172 METS: 10.5 MAXIMUM STAGE REACHED: III TOTAL EXERCISE TIME: 9 minutes CLINICAL INFORMATION: STRESS DATA: Heart rate 77, pressure is 120/83 mmHg. Baseline EKG showed sinus mechanism. The patient exercised on the treadmill according to Kel protocol for a total of 9 minutes and achieved 10.5 METs. Max heart rate was 165, which is about 96% of maximum predicted heart rate. Maximum blood pressure was 184/90 mmHg. Clinically the patient did not have any symptoms of chest pain or discomfort and the EKG did not show any significant ST or T-wave abnormalities concerning for ischemia. ECHOCARDIOGRAM IMAGES: On echo from parasternal long axis view, parasternal short axis view, apical 4 chamber and apical 2 chamber view, were obtained as the baseline images, at the peak of the heart rate as well as on recovery. The echocardiogram images showed good augmentation in the left ventricular systolic function without any evidence of wall motion abnormalities concerning for ischemia. CONCLUSION: 1. Excellent exercise tolerance. 2. Normal EKG in response to exercise. 3. Normal echocardiogram in response to exercise. MMODL / IJN: [id number] /
== END | disposition home or self-care (01) ==
LOC: RADNMMAIN 08:54
PROVIDERS: ATTEND Nurse Practitioner Family
DX: I10 Essential (primary) hypertension (principal); R00.0 Tachycardia, unspecified; Z88.2 Allergy status to sulfonamides
CPT/HCPCS: 93351

== ENCOUNTER 2019-04-20 14:48 | Emergency (ER) | payer BC ==
[2019-04-20] MEDS ORDERED: ONDANSETRON ODT 4 MG TAB PO STA (15:36)
--- NOTE | 2019-04-20 16:14 | CT ---
EXAMINATION TYPE: CT brain wo con DATE OF EXAM: 04/20/2019 COMPARISON: None HISTORY: 48-year-old female Headache. TECHNIQUE: Examination was done in axial plane without intravenous contrast. Coronal and sagittal r econstructions performed. CT DLP: 1040.4 mGycm Automated exposure control for dose reduction was used. FINDINGS: There is no evidence of acute intracranial hemorrhage, acute ischemic changes, mass, mass-effect, or extra-axial fluid collection. There is no effacement of cerebral sulci or basal subarachnoid cister ns. There is no hydrocephalus. There is no midline shift. Monteiro-white matter distinction is preserv ed. Paranasal sinuses and mastoid air cells are well pneumatized. Orbits and globes are intact. IMPRESSION: No acute intracranial abnormality seen.
--- NOTE | 2019-04-20 16:59 | ED ---
General Adult HPI - General Chief complaint: Headache Stated complaint: migraine Time Seen by Provider: 04/20/19 15:05 Source: patient, RN notes reviewed, old records reviewed Mode of arrival: ambulatory Limitations: no limitations - History of Present Illness Initial comments: 48-year-old female patient past history of migraine headaches been [facility] chief com plaint of migraine headache. Patient reports that he began approximately one hour prior to presentation. Patient denies worst headache of life, states it is similar to migraine headache she experiencing past. Patient does report that she had some very mild paresthesias of her jaw region which was concerning to her. Patient denies any other complaints at this time. Denies any chest pain shortness of breath. Systemic: Pt denies fatigue, fever/chills, rash. Pt denies weakness, night sweats, weight loss. Neuro: Pt denies headache, visual disturbances, syncope or pre-syncope. HEENT: Pt denies ocular discharge or irritation, otalgia, rhinorrhea, pharyngitis or notable lymphadenopathy. Cardiopulmonary: Pt denies chest pain, SOB, heart palpitations, dyspnea on exertion. Abdominal/GI: Pt denies abdominal pain, n/v/d. : Pt denies dysuria, burning w/ urination, frequency/urgency. Denies new onset urinary or bowel incontinence. MSK: Pt denies myalgia, loss of strength or function in extremities. Neuro: Pt denies new onset weakness, paresthesias. - Related Data Home Medications Medication Instructions Recorded Confirmed Diltiazem HCl [Cartia Xt] 120 mg PO HS 05/27/17 04/20/19 LORazepam [Ativan] 2 mg PO HS 05/27/17 04/20/19 Almotriptan Malate [Axert] 12.5 mg PO DAILY PRN 12/14/17 04/20/19 Dextroamphetamine/Amphetamine 30 mg PO QAM 12/14/17 04/20/19 [Adderall Xr] Allergies Allergy/AdvReac Type Severity Reaction Status Date / Time Beta-Blockers Allergy Rash/Hives Verified 04/20/19 15:02 (Beta-Adrenergic Bloc codeine Allergy Rash/Nightm Verified 04/20/19 15:02 sergio Sulfa (Sulfonamide Allergy Rash/Hives Verified 04/20/19 15:02 Antibiotics) sulfite Allergy Rash/Hives Verified 04/20/19 15:02 Review of Systems ROS Statement: Those systems with pertinent positive or pertinent negative responses have been documented in the HPI. ROS Other: All systems not noted in ROS Statement are negative. Past Medical History Past Medical History: Cancer, GERD/Reflux, Hypertension, Liver Disease, Thyroid Disorder Additional Past Medical History / Comment(s): Lymphoma with radiation 2013; MIGRAINES,4 liver hemagiomas, chronic UTI's History of Any Multi-Drug Resistant Organisms: None Reported Past Surgical History: Cholecystectomy, Tubal Ligation Additional Past Surgical History / Comment(s): colonoscopy,EGD, lasik eye surgery Past Anesthesia/Blood Transfusion Reactions: Postoperative Nausea & Vomiting (PONV) Additional Past Anesthesia/Blood Transfusion Reaction / Comment(s): PT & PT'S MOM ALSO HAVE HX PONV Past Psychological History: Anxiety, Depression, Panic Disorder Smoking Status: Current every day smoker Past Alcohol Use History: Occasional Past Drug Use History: Marijuana - Past Family History Father Family Medical History: Cancer Mother Family Medical History: Deep Vein Thrombosis (DVT) General Exam - General Exam Comments Initial Comments: Constitutional: NAD, AOX3, Pt has pleasant affect. HEENT: NC/AT, trachea midline, neck supple, no lymphadenopathy. Posterior pharynx non erythematous, without exudates. External ears appear normal, without discharge. Mucous membranes moist. Eyes PERRLA, EOM intact. There is no scleral icterus. No pallor noted. Cardiopulmonary: RRR, no murmurs, rubs or gallops, no JVD noted. Lungs CTAB in anterior and posterior baeza. No peripheral edema. Abdominal exam: Abdomen soft and non-distended. Abdomen non-tender to palpation in all 4 quadrants. Bowel sounds active in LLQ. No hepatosplenomegaly. No ecchymosis Neuro: CN II-XII intact. No nuchal rigidity. No raccon eyes, no holt sign, no hemotympanum. No cervical spinal tenderness. MSK: No posterior calf tenderness bilaterally, homans sign negative bilaterally. Posterior tibialis and radial pulse +2 bilaterally. Sensation intact in upper and lower extremities. Full active ROM in upper and lower extremities, 5/5 stregnth. Limitations: no limitations Course Vital Signs 04/20/19 14:50 Temperature 97.5 F L Pulse Rate 92 Respiratory 18 Rate Blood Pressure 165/104 O2 Sat by Pulse 99 Oximetry Medical Decision Making - Medical Decision Making 48-year-old female patient past history of migraine headaches been [facility] chief complaint of migraine headache. Patient reports that he began approximately one hour prior to presentation. Patient denies worst headache of life, states it is similar to migraine headache she experiencing past. Patient does report that she had some very mild paresthesias of her jaw region which was concerning to her. Patient denies any other complaints at this time. Denies any chest pain shortness of breath. Patient vital signs stable, afebrile. Physical exam did not sleep acute pathology. Neurologic exam within normal limits 2. NIH 0. CT brain did not display acute process. Patient declining treatment for headache, states that she has improved with migraine medication she took prior to arrival. Patient will be discharged, will follow up with primary care provider and previously established neurologist. Return to ER if condition worsens. Case discussed with Dr. Zaidi. Disposition Clinical Impression: Migraine headache Disposition: HOME SELF-CARE Condition: Stable Instructions (If sedation given, give patient instructions): Acute Headache (ED) Additional Instructions: Patient to adhere to previously discussed treatment plan and will take medication(s) as directed. Patient to follow up with PCP in 1-2 days. Patient to return to ED if symptoms do not improve. Follow-up with primary care provider and previously established neurologist. Return to ER if condition worsens. Is patient prescribed a controlled substance at d/c from ED?: No Referrals: Reginaldo Johnson Jr, [Primary Care Provider] - 1-2 days
[2019-04-20 17:21] VITALS: BP 164/101; PULSE 89; RESP 16; TEMP 98.2
== END 2019-04-20 17:21 | disposition home or self-care (01) ==
LOC: EC 14:48
DX: G43.909 Migraine, unspecified, not intractable, without status migrainosus (principal); I10 Essential (primary) hypertension; F41.0 Panic disorder [episodic paroxysmal anxiety]; F32.9 Major depressive disorder, single episode, unspecified; Z85.72 Personal history of non-Hodgkin lymphomas; F17.200 Nicotine dependence, unspecified, uncomplicated; Z79.899 Other long term (current) drug therapy; Z88.8 Allergy status to other drugs, medicaments and biological substances; Z88.5 Allergy status to narcotic agent; Z88.2 Allergy status to sulfonamides; R20.2 Paresthesia of skin
CPT/HCPCS: 70450; 99284

== ENCOUNTER → 2019-06-22 | Outpatient (CLI) | payer OTHER, BC ==
--- NOTE | 2019-06-22 22:37 | MR ---
EXAMINATION TYPE: MR brain wo con DATE OF EXAM: 06/22/2019 COMPARISON: Outside brain MRI April 11, 2014. Recent CT brain April 20, 2019. HISTORY: Migraine/Memory loss TECHNIQUE: Multiplanar, multisequence imaging of the brain and brainstem is performed without IV cont rast. FINDINGS: Diffusion weighted images demonstrate no evidence of a recent infarct or other diffusion abnormality. There is no worrisome extra-axial fluid collection. The ventricular system and cisternal spaces are normal in size and appearance. The brain volume is age appropriate. Occasional scattered focus of T2 hyperintensity for reference 3 to 4 mm lesion posterior right frontal lobe axial image 20. Less than 5 scattered lesions are seen. Lesions are clearly seen on 2014 study. Midline structures demonstrate normal morphology. The craniocervical junction appears within normal limits. Normal vascular flow voids are present. There are 2 small mucous retention cysts or polyps in the inferior right maxillary sinus otherwise paranasal sinuses are clear. IMPRESSION: Chronic right maxillary sinus disease more prominent from 2014 study. Mild to minimal non specific white matter changes may be on basis of altered vascular flow related to product of migraine headaches.
== END | disposition home or self-care (01) ==
LOC: RADMRIMAIN 20:40
PROVIDERS: ATTEND Psychiatry & Neurology Neurology
DX: R90.89 Other abnormal findings on diagnostic imaging of central nervous system (principal)
CPT/HCPCS: 70551

== ENCOUNTER → 2019-07-21 | Outpatient (CLI) | payer OTHER ==
--- NOTE | 2019-07-21 13:21 | CT ---
EXAMINATION TYPE: CT abdomen pelvis w con DATE OF EXAM: 07/21/2019 COMPARISON: CT 07/20/2018 HISTORY: Lymphoma CT DLP: 922.9 mGycm Automated exposure control for dose reduction was used. TECHNIQUE: Helical acquisition of images from the lung bases through the pelvis have been completed. CONTRAST: Performed with Oral Contrast and with IV Contrast, patient injected with 100 mL of Isovue 300. FINDINGS: LUNG BASES: No significant abnormality is appreciated. AORTA: No significant abnormality is appreciated. LIVER/GB: No significant interval change is appreciated low attenuation foci show stable size, enhanc ement seen on previous exam within the left lobe lesion is no longer seen, patient is post cholecyste ctomy. PANCREAS: No significant abnormality is seen. SPLEEN: No significant abnormality is seen. ADRENALS: No significant abnormality is seen. KIDNEYS: No significant abnormality is seen. REPRODUCTIVE ORGANS: Fallopian tubal ligation clips are present. BOWEL: No significant abnormality is seen. FREE AIR: No Free Air visible. ASCITES: None visible. PELVIC ADENOPATHY: None visualized. RETROPERITONEAL ADENOPATHY: No Retroperitoneal Adenopathy visible. URINARY BLADDER: No significant abnormality is seen. OSSEOUS STRUCTURES: No significant abnormality is seen. IMPRESSION: ESSENTIALLY STABLE EXAM. NO SIGNIFICANT ABNORMALITIES EVIDENT
== END | disposition home or self-care (01) ==
LOC: RADCTMAIN 09:08
PROVIDERS: ATTEND Internal Medicine Hematology & Oncology
DX: C83.80 Other non-follicular lymphoma, unspecified site (principal); Z88.5 Allergy status to narcotic agent
CPT/HCPCS: 74177; Q9967 ×2

== ENCOUNTER 2019-09-05 10:21 | Inpatient (IN) | payer OTHER ==
--- NOTE | 2019-09-05 11:08 | ED ---
General Adult HPI - General Chief complaint: Psychiatric Symptoms Stated complaint: mental health Time Seen by Provider: 09/05/19 10:40 Source: patient, family, RN notes reviewed, old records reviewed Mode of arrival: ambulatory Limitations: no limitations - History of Present Illness Initial comments: This is a 48-year-old female who presents emergency department with past medical history significant for depression ADHD and anxiety. Patient comes in today because over the last week she has been very depressed and can't stop crying. Patient states she started to have suicidal thoughts and though she has a partial plan she does not have any actual plan. Patient states she has made no attempt. Patient states she's not been any drugs and though she drinks about an ounce of alcohol everyday because part of her job. Patient does not drink everyday home. Patient denies any illegal drug use. Patient denies any physical complaints. - Related Data Home Medications Medication Instructions Recorded Confirmed Diltiazem HCl [Cartia Xt] 120 mg PO HS 05/27/17 04/20/19 LORazepam [Ativan] 2 mg PO HS 05/27/17 04/20/19 Almotriptan Malate [Axert] 12.5 mg PO DAILY PRN 12/14/17 04/20/19 Dextroamphetamine/Amphetamine 30 mg PO QAM 12/14/17 04/20/19 [Adderall Xr] Allergies Allergy/AdvReac Type Severity Reaction Status Date / Time Beta-Blockers Allergy Rash/Hives Verified 04/20/19 15:02 (Beta-Adrenergic Bloc codeine Allergy Rash/Nightm Verified 04/20/19 15:02 sergio Sulfa (Sulfonamide Allergy Rash/Hives Verified 04/20/19 15:02 Antibiotics) sulfite Allergy Rash/Hives Verified 04/20/19 15:02 Review of Systems ROS Statement: Those systems with pertinent positive or pertinent negative responses have been documented in the HPI. ROS Other: All systems not noted in ROS Statement are negative. Past Medical History Past Medical History: Cancer, GERD/Reflux, Hypertension, Liver Disease, Thyroid Disorder Additional Past Medical History / Comment(s): Lymphoma with radiation 2013; MIGRAINES,4 liver hemagiomas, chronic UTI's History of Any Multi-Drug Resistant Organisms: None Reported Past Surgical History: Cholecystectomy, Tubal Ligation Additional Past Surgical History / Comment(s): colonoscopy,EGD, lasik eye surgery Past Anesthesia/Blood Transfusion Reactions: Postoperative Nausea & Vomiting (PONV) Additional Past Anesthesia/Blood Transfusion Reaction / Comment(s): PT & PT'S M OM ALSO HAVE HX PONV Past Psychological History: Anxiety, Depression, Panic Disorder Smoking Status: Former smoker Past Alcohol Use History: Occasional Past Drug Use History: Marijuana - Past Family History Father Family Medical History: Cancer Mother Family Medical History: Deep Vein Thrombosis (DVT) General Exam - General Exam Comments Initial Comments: GENERAL: Patient is well-developed and well-nourished. Patient is nontoxic and well- hydrated and is in no acute distress. ENT: Neck is soft and supple. No significant lymphadenopathy is noted. Oropharynx is clear. Moist mucous membranes. Neck has full range of motion without eliciting any pain. EYES: The sclera were anicteric and conjunctiva were pink and moist. Extraocular movements were intact and pupils were equal round and reactive to light. Eyelids were unremarkable. PULMONARY: Unlabored respirations. Good breath sounds bilaterally. No audible rales rhonchi or wheezing was noted. CARDIOVASCULAR: There is a regular rate and rhythm without any murmurs gallops or rubs. ABDOMEN: Soft and nontender with normal bowel sounds. SKIN: Skin is clear with no lesions or rashes and otherwise unremarkable. NEUROLOGIC: Patient is alert and oriented x3. Cranial nerves II through XII are grossly intact. Motor and sensory are also intact. Normal speech, volume and content. Symmetrical smile. MUSCULOSKELETAL: Normal extremities with adequate strength and full range of motion. LYMPHATICS: No significant lymphadenopathy is noted PSYCHIATRIC: Patient has a flat affect and states she is having suicidal thoughts. Limitations: no limitations Course Vital Signs 09/05/19 10:35 Temperature 97.9 F Pulse Rate 77 Respiratory 18 Rate Blood Pressure 121/72 O2 Sat by Pulse 99 Oximetry Medical Decision Making - Medical Decision Making EPS evaluated the patient and determined the patient needed to be admitted. - Lab Data Lab Results 09/05/19 Range/Units 11:00 Urine Opiates Screen Not Detected (NotDetected) Ur Oxycodone Screen Not Detected (NotDetected) Urine Methadone Screen Not Detected (NotDetected) Ur Propoxyphene Screen Not Detected (NotDetected) Ur Barbiturates Screen Not Detected (NotDetected) U Tricyclic Antidepress Not Detected (NotDetected) Ur Phencyclidine Scrn Not Detected (NotDetected) Ur Amphetamines Screen Not Detected (NotDetected) U Methamphetamines Scrn Not Detected (NotDetected) U Benzodiazepines Scrn Not Detected (NotDetected) Urine Cocaine Screen Not Detected (NotDetected) U Marijuana (THC) Screen Not Detected (NotDetected) Disposition Clinical Impression: Depression, Suicidal ideation Disposition: ADMITTED IP TO THIS HOSP Referrals: Reginaldo Johnson Jr, [Primary Care Provider] - 1-2 days Time of Disposition: 12:53
[2019-09-05 11:47] LABS: Amphetamine Screen,Urine Not Detected (NotDetected); Barbiturate Screen,Urine Not Detected (NotDetected); Benzodiazepines Screen,Urine Not Detected (NotDetected); Cocaine Screen,Urine Not Detected (NotDetected); Methadone Screen, Urine Not Detected (NotDetected); Opiate Screen,Urine Not Detected (NotDetected); Oxycodone Screen, Urine Not Detected (NotDetected); Phencyclidine Screen,Urine Not Detected (NotDetected); Tricyclic Antidepressant,Urine Not Detected (NotDetected); Urn Cannabinoid Scrn Not Detected (NotDetected)
[2019-09-05] MEDS ORDERED: SUMAtriptan SUCCINATE 50 MG TAB PO PRN (14:00)
[2019-09-05] MEDS ORDERED: ACETAMINOPHEN TAB 325 MG TAB PO PRN (14:03)
[2019-09-05] MEDS ORDERED: MAG HYDROX/AL HYDROX/SIMETH 30 ML CUP PO PRN (14:03)
[2019-09-05] MEDS ORDERED: MAGNESIUM HYDROXIDE 2,400 MG/10 ML CUP PO PRN (14:03)
[2019-09-05] MEDS ORDERED: ZIPRASIDONE 20 MG VIAL IM PRN (14:03)
[2019-09-05] MEDS ORDERED: LORazepam 1 MG TAB PO PRN (14:03)
[2019-09-05] MEDS ORDERED: LORazepam 2 MG/ML INJ IM PRN (14:04)
[2019-09-06 09:27] LABS: Basophils % (A) 1 %; Eosinophils # (A) 0.1 k/uL (0-0.7); Eosinophils % (A) 2 %; HCT 42.3 % (34.0-46.0); HGB 14.2 gm/dL (11.4-16.0); Lymphocytes # (A) 1.3 k/uL (1.0-4.8); Lymphocytes % (A) 23 %; MCH 30.4 pg (25.0-35.0); MCHC 33.5 g/dL (31.0-37.0); MCV 90.7 fL (80.0-100.0); Mean Platelet Volume 7.7; Monocytes # (A) 0.3 k/uL (0-1.0); Monocytes % (A) 5 %; Neutrophils # (A) 3.7 k/uL (1.3-7.7); Neutrophils % (A) 68 %; Platelet Count 245 k/uL (150-450); RBC 4.66 m/uL (3.80-5.40); RDW 12.4 % (11.5-15.5); WBC 5.4 k/uL (3.8-10.6)
[2019-09-06 09:56] LABS: ALT 26 U/L (4-34); AST 25 U/L (14-36); African American GFR (CKD) >90 (>60 ml/min/1.73 sqM); Albumin 4.2 g/dL (3.5-5.0); Alkaline Phosphatase 64 U/L (38-126); Anion Gap 10 mmol/L; Blood Urea Nitrogen 11 mg/dL (7-17); Calcium 9.4 mg/dL (8.4-10.2); Carbon Dioxide 28 mmol/L (22-30); Chloride 100 mmol/L (98-107); Cholesterol 179 mg/dL (<200); Glucose 181 mg/dL (74-99); HDL Cholesterol 43 mg/dL (40-60); LDL Cholesterol,Calculated 111 mg/dL (0-99); Non-African American GFR(CKD) >90 (>60 ml/min/1.73 sqM); Potassium 4.2 mmol/L (3.5-5.1); Sodium 138 mmol/L (137-145); Total Bilirubin 1.5 mg/dL (0.2-1.3); Total Protein 6.8 g/dL (6.3-8.2); Triglycerides 127 mg/dL (<150)
[2019-09-06] MEDS: CHOLECALCIFEROL 400 UNIT TAB PO SCH (10:30)
--- NOTE | 2019-09-06 12:17 | P.HP ---
Psychiatric H&P - . H&P Date: 09/06/19 History & Physical: Allergies Allergy/AdvReac Type Severity Reaction Status Date / Time Beta-Blockers Allergy Rash/Hives Verified 09/05/19 12:56 (Beta-Adrenergic Bloc codeine Allergy Rash/Nightm Verified 09/05/19 12:56 sergio Sulfa (Sulfonamide Allergy Rash/Hives Verified 09/05/19 12:56 Antibiotics) sulfite Allergy Rash/Hives Verified 09/05/19 12:56 Vital Signs Temp 97.9 F 09/06/19 05:17 Pulse 102 H 09/06/19 05:17 Resp 14 09/06/19 05:17 BP 123/86 09/06/19 05:17 Pulse Ox 100 09/05/19 14:55 Intake & Output 09/05/19 09/06/19 09/06/19 18:59 06:59 18:59 Weight 79.4 kg Laboratory Last Values WBC 5.4 k/uL (3.8-10.6) 09/06/19 09:01 RBC 4.66 m/uL (3.80-5.40) 09/06/19 09:01 Hgb 14.2 gm/dL (11.4-16.0) 09/06/19 09:01 Hct 42.3 % (34.0-46.0) 09/06/19 09:01 MCV 90.7 fL (80.0-100.0) 09/06/19 09:01 MCH 30.4 pg (25.0-35.0) 09/06/19 09:01 MCHC 33.5 g/dL (31.0-37.0) 09/06/19 09:01 RDW 12.4 % (11.5-15.5) 09/06/19 09:01 Plt Count 245 k/uL (150-450) 09/06/19 09:01 Neutrophils % 68 % 09/06/19 09:01 Lymphocytes % 23 % 09/06/19 09:01 Monocytes % 5 % 09/06/19 09:01 Eosinophils % 2 % 09/06/19 09:01 Basophils % 1 % 09/06/19 09:01 Neutrophils # 3.7 k/uL (1.3-7.7) 09/06/19 09:01 Lymphocytes # 1.3 k/uL (1.0-4.8) 09/06/19 09:01 Monocytes # 0.3 k/uL (0-1.0) 09/06/19 09:01 Eosinophils # 0.1 k/uL (0-0.7) 09/06/19 09:01 Basophils # 0.0 k/uL (0-0.2) 09/06/19 09:01 Sodium 138 mmol/L (137-145) 09/06/19 09:01 Potassium 4.2 mmol/L (3.5-5.1) 09/06/19 09:01 Chloride 100 mmol/L (98-107) 09/06/19 09:01 Carbon Dioxide 28 mmol/L (22-30) 09/06/19 09:01 Anion Gap 10 mmol/L 09/06/19 09:01 BUN 11 mg/dL (7-17) 09/06/19 09:01 Creatinine 0.70 mg/dL (0.52-1.04) 09/06/19 09:01 Est GFR (CKD-EPI)AfAm >90 (>60 ml/min/1.73 sqM) 09/06/19 09:01 Est GFR (CKD-EPI)NonAf >90 (>60 ml/min/1.73 sqM) 09/06/19 09:01 Glucose 181 mg/dL (74-99) H 09/06/19 09:01 Calcium 9.4 mg/dL (8.4-10.2) 09/06/19 09:01 Total Bilirubin 1.5 mg/dL (0.2-1.3) H 09/06/19 09:01 AST 25 U/L (14-36) 09/06/19 09:01 ALT 26 U/L (4-34) 09/06/19 09:01 Alkaline Phosphatase 64 U/L (38-126) 09/06/19 09:01 Total Protein 6.8 g/dL (6.3-8.2) 09/06/19 09:01 Albumin 4.2 g/dL (3.5-5.0) 09/06/19 09:01 Triglycerides 127 mg/dL (<150) 09/06/19 09:01 Cholesterol 179 mg/dL (<200) 09/06/19 09:01 LDL Cholesterol, Calc 111 mg/dL (0-99) H 09/06/19 09:01 HDL Cholesterol 43 mg/dL (40-60) 09/06/19 09:01 TSH 1.900 mIU/L (0.465-4.680) 09/06/19 09:01 Urine Opiates Screen Not Detected (NotDetected) 09/05/19 11:00 Ur Oxycodone Screen Not Detected (NotDetected) 09/05/19 11:00 Urine Methadone Screen Not Detected (NotDetected) 09/05/19 11:00 Ur Propoxyphene Screen Not Detected (NotDetected) 09/05/19 11:00 Ur Barbiturates Screen Not Detected (NotDetected) 09/05/19 11:00 U Tricyclic Antidepress Not Detected (NotDetected) 09/05/19 11:00 Ur Phencyclidine Scrn Not Detected (NotDetected) 09/05/19 11:00 Ur Amphetamines Screen Not Detected (NotDetected) 09/05/19 11:00 U Methamphetamines Scrn Not Detected (NotDetected) 09/05/19 11:00 U Benzodiazepines Scrn Not Detected (NotDetected) 09/05/19 11:00 Urine Cocaine Screen Not Detected (NotDetected) 09/05/19 11:00 U Marijuana (THC) Screen Not Detected (NotDetected) 09/05/19 11:00 09/06/19 12:08 IDENTIFYING DATA: Patient is a 48-year-old female who currently lives with her and her daughter in house and 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 Patient also endorsed having suicidal ideations and thoughts of crashing her car. Patient claims that she had a medication change in April by her primary care doctor taking her off Adderall and Ativan at that time and patient states that she has been feeling more anxious since then and also depressed. She states that she was seeing a counselor at [facility] and trying to do yoga and meditation however it was not helping her and patient was feeling more tearful at times. Patient also spoke about thinking about changing her life insurance policy and making plans for . She states that she was having panic attacks once every 2-3 days and describes him as having shortness of breath, crying and shaking along with palpitations. Patient states that her sleep has been okay and appetite okay however states that her concentration and anxiety have been elevated. She states that she is having stressors as her lost his job and is having stress from her work. Patient denies any homicidal ideations intent or plan however does state that she has some passive suicidal thoughts about "me not being here anymore" however has no intent or plan. At this time patient denies any auditory or visual hallucinations. Patient denies any flight of ideas racing thoughts and increased in goal directed behavior. Patient admits to previously smoking and using marijuana however has quit since April of this year. She states that she drinks about an ounce of alcohol daily due to her job. UDS on admission was negative. PAST PSYCHIATRIC HISTORY: Patient states that she states that she has a history of depression and anxiety and ADHD. She states that she has been seeing a counselor at [facility] however denies any psychiatric outpatient treatment. She claims that she is to be on Ativan and Adderall and is taking Wellbutrin in the past but has had poor tolerance to it. She states that she has never been admitted to a mental unit in the past. She claims that she did have a gun in her mouth about 4 years ago after she was diagnosed with cancer. PMH: Cancer, lymphoma with radiation in 2013, GERD, hypertension, liver disease, thyroid disorder. ALLERGIES: as per EMR CHEMICAL DEPENDENCY HISTORY: as per HPI FAMILY PSYCHIATRIC/SUBSTANCE USE HISTORY: States that her grandmother and her mother both have depression and anxiety. SOCIAL HISTORY: She states that she is born and raised in [facility] [place] [facility] and has an associates degree. She claimed that she has 3 kids and lives with her and 1 daughter. 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 MENTAL STATUS EXAM: General Appearance: Patient appears to be stated age is alert, pleasant, and attempts to cooperate. Marginal hygiene and grooming Behavior: Patient is calmly seated without any agitated behavior. Speech: Patient's speech is fluent and nonpressured. Soft spoken at times. Mood/Affect: Patient reports their mood is depressed and anxious, affect is congruent and constricted. Suicidality/Homicidality: Patient denies having any suicidal or homicidal ideation intent or plan. Perceptions: Patient denies any visual hallucinations and denies any auditory hallucinations Though content/process: There is no evidence of any delusional thought content and thought process is linear and goal-directed. Minimizes her symptoms, guarded at times. Memory and concentration: AOX3, grossly intact for the purposes of this session. Can spell "WORLD" backwards Judgment and insight: poor STRENGTHS/WEAKNESSES: strength is that patient is resilient, weaknesses that patient has poor compliance of medications. INTELLECT: average IMPRESSIONS: Major depressive disorder, recurrent, severe without psychotic features Anxiety disorder unspecified rule out panic disorder PLAN: -Patient is admitted under voluntary status to MHU for stabilization of psychiatric symptoms and safety. Patient signed adult voluntary form and medication consent and is placed in patient's chart. -Medications : Will start patient on Zoloft 25 mg low dose for anxiety/mood with plan to titrate up slowly as tolerated. Will also start melatonin 3 mg daily at bedtime for sleep. -Ativan and Geodon PRN for agitation/aggression. -Patient was informed of the risks, benefits and side effects of the medication and patient verbally consented to taking the medications. Patient signed med consent form and was placed in chart. -Patient is currently taking medications for headache including Axert and Aymovig. Discussed with patient the potential for interaction with Zoloft including serotonin syndrome and to look out for any signs and symptoms and to report to nurses were doctors if she does experience this. Patient verbally understood. -Will consult neurology for evaluation of headache medications. -NRT -not need his patient does not smoke. -SW on board for discharge planning
[2019-09-06] MEDS: SERTRALINE 25 MG TAB PO SCH (13:23)
[2019-09-06 19:34] LABS: Hemoglobin A1C 5.7 % (4.0-6.0)
[2019-09-06] MEDS: MELATONIN 3 MG TABLET PO SCH (20:42)
[2019-09-07] MEDS: CHOLECALCIFEROL 400 UNIT TAB PO SCH (09:22)
[2019-09-07] MEDS: SERTRALINE 25 MG TAB PO SCH (09:22)
--- NOTE | 2019-09-07 12:03 | P.PN ---
Progress Note - Text Progress Note Date: 09/07/19 Interval History: Patient was seen taking part in group completing a puzzle and was directable and agreeable to speak to automobile and property underwriter in the office. Patient states that her mood has mildly improved however claims that she feels anxious and "jittery" and states that she is also having some stomach pain after taking the Zoloft. She states that she is worried about taking medications and when offered to take anything for anxiety patient declined at this time. She states that she slept to the night and did not need melatonin. She claims that she has been tend take part in groups and taking her medications. Patient claims that she continues to feel tearful and labile at times and has "ups and downs". At this time patient denies any suicidal or homical ideations, intent or plan. Patient denies any auditory, visual hallucinations and denies any paranoia or delusions. Mental Status Exam: General Appearance: Patient appears to be stated age is alert, pleasant, and attempts to cooperate. Improving hygiene and grooming Behavior: Patient is calmly seated without any agitated behavior. Tearful at times. Speech: Patient's speech is fluent and nonpressured. Mood/Affect: Patient reports their mood is anxious, affect is congruent and labile. Suicidality/Homicidality: Patient denies having any suicidal or homicidal ideation intent or plan. Perceptions: Patient denies any visual hallucinations and denies any auditory hallucinations Though content/process: There is no evidence of any delusional thought content and thought process is linear and goal-directed. Minimizes her symptoms, guarded at times. Memory and concentration: AOX3, grossly intact for the purposes of this session Judgment and insight: poor, mildly improving Assessment Major depressive disorder, recurrent, severe without psychotic features Anxiety disorder unspecified rule out panic disorder Plan: -Patient continues to meet criteria for inpatient psychiatric admission for symptom stabilization and safety. Patient has signed adult voluntary form and medication consent and was placed in patient's chart. -Medications: We'll continue with Zoloft 25 mg for anxiety/mood with plan to titrate up slowly as tolerated. We'll continue to monitor closely for serotonin syndrome. Continue with melatonin daily at bedtime for sleep. Added Lamictal 25 mg twice a day for mood stabilization/depression. Business Analysis Professional discussed the possibility of a rash on her skin as a side effect from Lamictal and advised patient to monitor skin closely. -When necessary Ativan and Geodon for agitation/aggression. -NRT -not needed as patient does not smoke. -SW on board for discharge planning. Likely discharge in 2-3 days.
[2019-09-07] MEDS: lamoTRIgine 25 MG TAB PO SCH ×2 (12:22→21:24)
[2019-09-07] MEDS: MELATONIN 3 MG TABLET PO SCH (21:25)
[2019-09-08] MEDS: CHOLECALCIFEROL 400 UNIT TAB PO SCH (09:13)
[2019-09-08] MEDS: lamoTRIgine 25 MG TAB PO SCH (09:14)
[2019-09-08] MEDS: SERTRALINE 25 MG TAB PO SCH (09:14)
--- NOTE | 2019-09-08 09:45 | P.PN ---
Progress Note - Text Progress Note Date: 09/08/19 Interval History: Patient was seen sitting in on group this morning and agreeable to speak to wr ben in the office. Patient states that her mood is continuing to be "jittery" and claims that she has "very good energy" and appears to be more talkative today. She states that she feels very happy and "opposite of depression". Patient was noted to be restless at times during the interview. She states that she has been monitoring her skin for any rashes and denies any rashes or any other side effects at this time. She states that her nausea and abdominal pain have decreased. She states that she slept poorly last night and did not describe any overnight problems. She states that she did not take the melatonin last night however will take it this night. She states that she does have some anxiety during the day and was agreeable to take Vistaril when necessary. She states that she feels guilty for being on the unit and claims that her family is upset with her. She claims that she has been taking part in groups and taking her medications. She states that she feels less labile and was not tearful today. At this time patient denies any suicidal or homical ideations, intent or plan. Patient denies any auditory, visual hallucinations and denies any paranoia or delusions. Mental Status Exam: General Appearance: Patient appears to be stated age is alert, pleasant, and attempts to cooperate. Improving hygiene and grooming Behavior: Patient is calmly seated without any agitated behavior. Not tearful today. Appears to be anxious. Speech: Patient's speech is fluent and nonpressured. Mood/Affect: Patient reports their mood is anxious, affect is congruent and labile. Suicidality/Homicidality: Patient denies having any suicidal or homicidal ideation intent or plan. Perceptions: Patient denies any visual hallucinations and denies any auditory hallucinations Though content/process: There is no evidence of any delusional thought content and thought process is linear and goal-directed. Minimizes her symptoms Memory and concentration: AOX3, grossly intact for the purposes of this session Judgment and insight: poor, mildly improving Assessment Major depressive disorder, recurrent, severe without psychotic features Anxiety disorder unspecified rule out panic disorder Plan: -Patient continues to meet criteria for inpatient psychiatric admission for symptom stabilization and safety. Patient has signed adult voluntary form and medication consent and was placed in patient's chart. -Medications: We'll continue with Zoloft 25 mg for anxiety/mood with plan to titrate up slowly as tolerated. We'll continue to monitor closely for serotonin syndrome. Continue with 3 mg melatonin daily at bedtime for sleep. Increased Lamictal 25 mg qam + 50mg qhs for mood stabilization/depression. Continuing to monitor for rash, patient denies any at this time. -When necessary Ativan and Geodon for agitation/aggression. Added Vistaril 25 mg every 6 hrs when necessary for anxiety. -NRT -not needed as patient does not smoke. -SW on board for discharge planning. Likely discharge either tomorrow or early next week.
[2019-09-08] MEDS: MELATONIN 3 MG TABLET PO SCH (20:45)
[2019-09-08] MEDS ORDERED: lamoTRIgine 25 MG TAB PO SCH (21:00)
[2019-09-09] MEDS: hydrOXYzine PAMOATE 25 MG CAP PO PRN ×2 (02:53→23:13)
[2019-09-09] MEDS: CHOLECALCIFEROL 400 UNIT TAB PO SCH (08:26)
[2019-09-09] MEDS: SERTRALINE 25 MG TAB PO SCH (08:26)
[2019-09-09] MEDS ORDERED: lamoTRIgine 25 MG TAB PO SCH (09:00)
[2019-09-09] MEDS ORDERED: SERTRALINE 25 MG TAB PO ONE (10:29)
--- NOTE | 2019-09-09 10:42 | P.PN ---
Progress Note - Text Progress Note Date: 09/09/19 Interval History: Patient was seen sitting in on group this morning and agreeable to speak to wr ben in the office. Patient states that her mood is continuing to be somewhat depressed however does feel like she has some mild improvement in her symptoms. She states that the "jitteriness" his beginning to mildly improve however she still feels tingling over her body at times. Patient continues to have some anxiety and states that she could not sleep last night. She states she slept about 3-4 hours and claims that her mind was "racing with thoughts". She did state that the Lamictal at night did help her initially fall asleep wherever feels that the dose may be too low. Patient was noted to be restless at times during the interview. She states that she has been monitoring her skin for any rashes and denies any rashes or any other side effects at this time. She states that her nausea and abdominal pain have decreased which she is happy about. She states that she does have some anxiety during the day and was agreeable to take Vistaril when necessary. She claims that she has been taking part in groups and taking her medications however claims that she is not getting much out of the groups. She states that she feels less labile and was not tearful today. At this time patient denies any suicidal or homical ideations, intent or plan. Patient denies any auditory, visual hallucinations and denies any paranoia or delusions. Mental Status Exam: General Appearance: Patient appears to be stated age is alert, and attempts to cooperate. Improving hygiene and grooming Behavior: Patient is calmly seated without any agitated behavior. Appears to be anxious and restless at times. Speech: Patient's speech is fluent and nonpressured. Mood/Affect: Patient reports their mood is anxious and continues to be depressed, affect is congruent Suicidality/Homicidality: Patient denies having any suicidal or homicidal ideation intent or plan. Perceptions: Patient denies any visual hallucinations and denies any auditory hallucinations Though content/process: There is no evidence of any delusional thought content and thought process is linear and goal-directed. More forthcoming about her symptoms and treatment. Memory and concentration: AOX3, grossly intact for the purposes of this session Judgment and insight: poor, mildly improving Assessment Major depressive disorder, recurrent, severe without psychotic features Anxiety disorder unspecified rule out panic disorder Plan: -Patient continues to meet criteria for inpatient psychiatric admission for symptom stabilization and safety. Patient has signed adult voluntary form and medication consent and was placed in patient's chart. -Medications: Increased Zoloft 50 mg for anxiety/mood with plan to titrate up slowly as tolerated. We'll continue to monitor closely for serotonin syndrome. Increased 6 mg melatonin daily at bedtime for sleep. Increased Lamictal 100 mg qhs for mood stabilization/depression. Continuing to monitor for rash, patient denies any at this time. -When necessary Ativan and Geodon for agitation/aggression. Continue with Vistaril 25 mg every 6 hrs when necessary for anxiety. -NRT -not needed as patient does not smoke. -SW on board for discharge planning. Likely discharge back home early next week.
[2019-09-09] MEDS: MELATONIN 3 MG TABLET PO SCH (21:11)
[2019-09-09] MEDS: lamoTRIgine 100 MG TAB PO SCH (21:11)
[2019-09-10] MEDS: CHOLECALCIFEROL 400 UNIT TAB PO SCH (08:38)
[2019-09-10] MEDS: SERTRALINE 50 MG TAB PO SCH (08:38)
--- NOTE | 2019-09-10 16:57 | P.PN ---
Progress Note - Text Progress Note Date: 09/10/19 Subjective: Patient was seen today as a cross coverage for Dr. Green. The patient was evaluated, chart reviewed, case discussed with the treatment team. Patient reported better sleep last night. Appetite was reported as " good". Patient has been going to groups and other unit activities. The patient is compliant with her medications and denies any adverse reactions. Patient reports feeling tired today and attributed that to increase Lamictal 200 mg last night. She reports feeling more stable emotionally and he denies feeling depressed, suicidal, or homicidal. She reports last time has suicidal thoughts was more than 5 days ago. She denies any hallucinations, paranoid ideation, and no delusions could be elicited. She reports that she has been told she would be discharged Thursday. She denies any manic symptoms including sustained period of time with elevated or irritable mood, impulsive or irrational behavior, inflated self-esteem, or absence need to sleep due to increases goal-directed activities. Objective: Vitals has been reviewed. Mental status examination; Appearance: The patient appears stated age, adequately groomed and dressed, no specific features. Gait/posture: Normal gait, Normal arm swinging: No abnormal movements. Attitude and behavior: engaged, cooperative, eye contact. Motor activity: Normal psychomotor activity Speech: Normal rate, tone. Mood: Anxious Affect: Constricted Thought form: goal-directed, linear, coherent. Thought content: Non-delusional, denies suicidal thoughts, denies homicidal thoughts, denies intentions or plans. Perception: Denies any auditory or visual hallucinations Attention: No impairment. Orientation: Patient patient was fully oriented to time place person and situation. Insight: Patient has fair insight about her psychiatric disorder. Judgment: Patient has fair judgment about her psychiatric treatment. Assessment: Major depressive disorder, recurrent, severe without psychotic features. Anxiety disorder, unspecified. Rule out panic disorder. Plan: Continue inpatient level of care due to need for further stabilization on medications Precautions: Continue 15 minutes check for safety. Consider medical consultation if any acute medical issues arise. Provide the patient individual, group therapy, substance use disorder counseling to give better insight and learn coping skills. Medications: Continue Vistaril when necessary for anxiety. Continue Lamictal 100 mg at bedtime for mood stabilization. Continue Zoloft 50 mg for depression and anxiety. Discharge patient to OUTPATIENT services upon a stabilization
[2019-09-10] MEDS: MELATONIN 3 MG TABLET PO SCH (20:44)
[2019-09-10] MEDS: lamoTRIgine 100 MG TAB PO SCH (20:44)
[2019-09-10] MEDS: hydrOXYzine PAMOATE 25 MG CAP PO PRN (20:45)
[2019-09-11] MEDS: SERTRALINE 50 MG TAB PO SCH (08:28)
[2019-09-11] MEDS: CHOLECALCIFEROL 400 UNIT TAB PO SCH (08:28)
[2019-09-11] MEDS ORDERED: BISACODYL 5 MG TABLET.DR PO PRN (13:15)
--- NOTE | 2019-09-11 13:19 | P.PN ---
Progress Note - Text Progress Note Date: 09/11/19 Subjective: Patient was seen today as a cross coverage for Dr. Green. The patient was evaluated, chart reviewed, case discussed with the treatment team. Patient reports feeling stable emotionally and he denies any depression or anxiety symptoms. She denies mood swings, irritability, agitation, or anger problems. She denies any hallucinations, paranoid ideation, and no delusions could be elicited. She denies any manic symptoms including euphoric mood, lack need to sleep due to increased activities, or irrational/uninhibited behavior. Patient continued going to groups and other unit activities. She denies any sleep or appetite problem. She continued to take her psychiatric medications and denies side effects. She reports having constipation today and she requested when necessary medications. Objective: Vitals has been reviewed. Mental status examination; Appearance: The patient appears stated age, adequately groomed and dressed, no specific features. Gait/posture: Normal gait, Normal arm swinging: No abnormal movements. Attitude and behavior: engaged, cooperative, eye contact. Motor activity: Normal psychomotor activity Speech: Normal rate, tone. Mood : "fine" Affect: Constricted Thought form: goal-directed, linear, coherent. Thought content: Non-delusional, denies suicidal thoughts, denies homicidal thoughts, denies intentions or plans. Perception: Denies any auditory or visual hallucinations Attention: No impairment. Orientation: Patient patient was fully oriented to time place person and situation. Insight: Patient has fair insight about her psychiatric disorder. Judgment: Patient has fair judgment about her psychiatric treatment. Assessment: Major depressive disorder, recurrent, severe without psychotic features. Anxiety disorder, unspecified. Rule out panic disorder. Plan: Continue inpatient level of care due to need for further stabilization on medications Precautions: Continue 15 minutes check for safety. Consider medical consultation if any acute medical issues arise. Provide the patient individual, group therapy, substance use disorder counseling to give better insight and learn coping skills. Medications: Continue Vistaril when necessary for anxiety. Continue Lamictal 100 mg at bedtime for mood stabilization. Continue Zoloft 50 mg for depression and anxiety. Discharge patient to OUTPATIENT services upon a stabilization
[2019-09-11] MEDS: MELATONIN 3 MG TABLET PO SCH (20:52)
[2019-09-11] MEDS: lamoTRIgine 100 MG TAB PO SCH (20:52)
[2019-09-12 06:51] VITALS: BP 104/61; PULSE 75; RESP 16; TEMP 98.7
[2019-09-12] MEDS: SERTRALINE 50 MG TAB PO SCH (08:51)
[2019-09-12] MEDS: CHOLECALCIFEROL 400 UNIT TAB PO SCH (08:51)
--- NOTE | 2019-09-12 10:02 | P.DS ---
Providers Date of admission: 09/05/19 13:39 Expected date of discharge: 09/12/19 Attending physician: Fabian Green MD Consults: 09/05/19 14:03 Consult Physician Routine Consulting Provider: Reginaldo Johnson Jr Consult Reason/Comments: H&P and medical Do you want consulting provider notified?: Yes 09/06/19 12:24 Consult Physician Routine Consulting Provider: Dolores Ba Consult Reason/Comments: Chronic CRAWFORD's and Medication review Do you want consulting provider notified?: Yes Primary care physician: Reginaldo Johnson - Discharge Diagnosis(es) (1) Major depressive disorder, recurrent severe without psychotic features Current Visit: Yes Status: Acute Priority: High (2) Anxiety disorder, unspecified Current Visit: Yes Status: Acute Priority: Medium Hospital Course: Admission HPI: Patient is a 48-year-old female who currently lives with her and her daughter in house and 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 Patient presented to the hospital with a complaint of increase in her depression and anxiety for the past week. Patient also endorsed having suicidal ideations and thoughts of crashing her car. Patient claims that she had a medication change in April by her primary care doctor taking her off Adderall and Ativan at that time and patient states that she has been feeling more anxious since then and also depressed. She states that she was seeing a counselor at [facility] and trying to do yoga and meditation however it was not helping her and patient was feeling more tearful at times. Patient also spoke about thinking about changing her life insurance policy and making plans for . She states that she was having panic attacks once every 2-3 days and describes him as having shortness of breath, crying and shaking along with palpitations. Patient states that her sleep has been okay and appetite okay however states that her concentration and anxiety have been elevated. She states that she is having stressors as her lost his job and is having stress from her work. Patient denies any homicidal ideations intent or plan however does state that she has some passive suicidal thoughts about "me not being here anymore" however has no intent or plan. At this time patient denies any auditory or visual hallucinations. Patient denies any flight of ideas racing thoughts and increased in goal directed behavior. Patient admits to previously smoking and using marijuana however has quit since April of this year. She states that she drinks about an ounce of alcohol daily due to her job. UDS on admission was negative. Hospital course: Upon admission to the unit patient was initially depressed and tearful/emotionally labile. Patient was hesitant at first however directable and agreeable to commence treatment. Patient got along well with other patients on the unit and followed unit protocol. Patient was compliant with the medications and she did complain initially of some GI symptoms and also "jitteriness" related to commencing of the Zoloft however this improved with time during hospitalization. Patient was started on Zoloft and titrated up to a dose of 50 mg daily for anxiety/mood. Patient was also started on melatonin 6 mg daily at bedtime for sleep. Patient was started on Lamictal and titrated up to a dose of 100 mg daily at bedtime for mood stabilization/depression. Patient was thoroughly informed about the possibility of a severe rash as a side effect and patient was educated about what to do in that case in terms of seeking medical attention then to consistently take her medications and monitor her skin, patient verbally understood and agreed. Also spoke with patient in depth about her headache medications and that they may have an additive effect to her Zoloft in terms of potentially causing serotonin syndrome and to seek medical attention if this does occur, patient verbally understood and agreed. Patient spoke of her stressors and engaged in therapy both group and individual. Patient was also seen by medical team for history and physical exam. Throughout the course of the hospitalization patient gradually improved with regards to mood, anxiety, lability, sleep and became future oriented with improved insight and judgment. On the day of discharge patient denied any suicidal or homicidal ideations intent or plan denied any auditory or visual hallucinations. Patient endorsed wanting to live for his health and family. Paralegal Legal Secretary spoke with patient about gun safety and patient states that her has locked away the guns in the house. She has no access to them. Patient denied any paranoia and did not endorse any delusions. Patient does not have a significant history of substance abuse however was counseled on abstaining from all substances including alcohol and marijuana. Patient was also counseled on the medications and need for regular compliance and was encouraged to follow-up with their outpatient appointment for mental health and also for primary care. Prior to discharge a family meeting will be arranged by social work program coordinator to answer any questions and ensure safety upon discharge, including ensuring gun safety. Mental status exam: General Appearance: Patient appears to be stated age is alert, pleasant, and cooperative. Patient is in no acute distress and has fair hygiene and grooming Behavior: Patient is calmly seated without any agitated behavior. Speech: Patient's speech is fluent and nonpressured. Mood/Affect: Patient reports their mood is "better", affect is congruent and euthymic. Suicidality/Homicidality: Patient denies having any suicidal or homicidal ideation intent or plan. Perceptions: Patient denies any auditory or visual hallucinations. Though content/process: There is no evidence of any delusional thought content and thought process is linear and goal-directed. Memory and concentration: AOX3, grossly intact for the purposes of this session. Can spell "WORLD" backwards correctly. Judgment and insight: fair, improved Impression: Major depressive disorder, recurrent, severe without psychotic features Anxiety disorder unspecified Plan: -Continue with discharge today as patient has improved and stabilized psychiatrically and is not currently an imminent threat to herself and/or others. -Continue medications: Continue with Zoloft 50 mg daily for anxiety/mood, melatonin 6 mg daily at bedtime for sleep. Lamictal 100 mg daily at bedtime for mood stabilization/depression. -Patient was thoroughly informed about the possibility of a severe rash as a side effect and patient was educated about what to do in that case in terms of seeking medical attention then to consistently take her medications and monitor her skin, patient verbally understood and agreed. Also spoke with patient in depth about her headache medications and that they may have an additive effect to her Zoloft in terms of potentially causing serotonin syndrome and to seek medical attention if this does occur, patient verbally understood and agreed. -Patient was counseled on the need for medication compliance and appropriate follow-up at mental health and also primary care for medical issues. Patient verbalized understanding and agreed. -Social work to arrange for and conduct family meeting to ensure safety upon discharge and answer any questions/concerns. Social work also to arrange for patients follow up appointments for psychiatric care with [facility] along with follow up with primary care provider. -Patient counseled on abstaining from recreational drugs and marijuana and alcohol. Was informed/educated on the adverse effects on their physical and mental health. Patient verbally agreed and understood. -Patient was instructed to return to the hospital or seek immediate medical care if their psychiatric or medical symptoms do worsen or reoccur. Allergies Allergy/AdvReac Type Severity Reaction Status Date / Time Beta-Blockers Allergy Rash/Hives Verified 09/05/19 12:56 (Beta-Adrenergic Bloc codeine Allergy Rash/Nightm Verified 09/05/19 12:56 sergio Sulfa (Sulfonamide Allergy Rash/Hives Verified 09/05/19 12:56 Antibiotics) sulfite Allergy Rash/Hives Verified 09/05/19 12:56 Laboratory Results WBC 5.4 k/uL (3.8-10.6) 09/06/19 09:01 RBC 4.66 m/uL (3.80-5.40) 09/06/19 09:01 Hgb 14.2 gm/dL (11.4-16.0) 09/06/19 09:01 Hct 42.3 % (34.0-46.0) 09/06/19 09:01 MCV 90.7 fL (80.0-100.0) 09/06/19 09:01 MCH 30.4 pg (25.0-35.0) 09/06/19 09:01 MCHC 33.5 g/dL (31.0-37.0) 09/06/19 09:01 RDW 12.4 % (11.5-15.5) 09/06/19 09:01 Plt Count 245 k/uL (150-450) 09/06/19 09:01 Neutrophils % 68 % 09/06/19 09:01 Lymphocytes % 23 % 09/06/19 09:01 Monocytes % 5 % 09/06/19 09:01 Eosinophils % 2 % 09/06/19 09:01 Basophils % 1 % 09/06/19 09:01 Neutrophils # 3.7 k/uL (1.3-7.7) 09/06/19 09:01 Lymphocytes # 1.3 k/uL (1.0-4.8) 09/06/19 09:01 Monocytes # 0.3 k/uL (0-1.0) 09/06/19 09:01 Eosinophils # 0.1 k/uL (0-0.7) 09/06/19 09:01 Basophils # 0.0 k/uL (0-0.2) 09/06/19 09:01 Sodium 138 mmol/L (137-145) 09/06/19 09:01 Potassium 4.2 mmol/L (3.5-5.1) 09/06/19 09:01 Chloride 100 mmol/L (98-107) 09/06/19 09:01 Carbon Dioxide 28 mmol/L (22-30) 09/06/19 09:01 Anion Gap 10 mmol/L 09/06/19 09:01 BUN 11 mg/dL (7-17) 09/06/19 09:01 Creatinine 0.70 mg/dL (0.52-1.04) 09/06/19 09:01 Est GFR (CKD-EPI)AfAm >90 (>60 ml/min/1.73 sqM) 09/06/19 09:01 Est GFR (CKD-EPI)NonAf >90 (>60 ml/min/1.73 sqM) 09/06/19 09:01 Glucose 181 mg/dL (74-99) H 09/06/19 09:[address] Glu mg/dL 117 09/06/19 09:01 Hemoglobin A1c 5.7 % (4.0-6.0) 09/06/19 09:01 Calcium 9.4 mg/dL (8.4-10.2) 09/06/19 09:01 Total Bilirubin 1.5 mg/dL (0.2-1.3) H 09/06/19 09:01 AST 25 U/L (14-36) 09/06/19 09:01 ALT 26 U/L (4-34) 09/06/19 09:01 Alkaline Phosphatase 64 U/L (38-126) 09/06/19 09:01 Total Protein 6.8 g/dL (6.3-8.2) 09/06/19 09:01 Albumin 4.2 g/dL (3.5-5.0) 09/06/19 09:01 Triglycerides 127 mg/dL (<150) 09/06/19 09:01 Cholesterol 179 mg/dL (<200) 09/06/19 09:01 LDL Cholesterol, Calc 111 mg/dL (0-99) H 09/06/19 09:01 HDL Cholesterol 43 mg/dL (40-60) 09/06/19 09:01 TSH 1.900 mIU/L (0.465-4.680) 09/06/19 09:01 Urine Opiates Screen Not Detected (NotDetected) 09/05/19 11:00 Ur Oxycodone Screen Not Detected (NotDetected) 09/05/19 11:00 Urine Methadone Screen Not Detected (NotDetected) 09/05/19 11:00 Ur Propoxyphene Screen Not Detected (NotDetected) 09/05/19 11:00 Ur Barbiturates Screen Not Detected (NotDetected) 09/05/19 11:00 U Tricyclic Antidepress Not Detected (NotDetected) 09/05/19 11:00 Ur Phencyclidine Scrn Not Detected (NotDetected) 09/05/19 11:00 Ur Amphetamines Screen Not Detected (NotDetected) 09/05/19 11:00 U Methamphetamines Scrn Not Detected (NotDetected) 09/05/19 11:00 U Benzodiazepines Scrn Not Detected (NotDetected) 09/05/19 11:00 Urine Cocaine Screen Not Detected (NotDetected) 09/05/19 11:00 U Marijuana (THC) Screen Not Detected (NotDetected) 09/05/19 11:00 Vital Signs Temp 98.7 F 09/12/19 06:22 Pulse 75 09/12/19 06:22 Resp 16 09/12/19 06:22 BP 104/61 09/12/19 06:22 Pulse Ox 98 09/08/19 06:51 Intake & Output 09/11/19 09/12/19 09/12/19 18:59 06:59 18:59 Weight 79.4 kg Patient Condition at Discharge: Stable Plan - Discharge Summary Discharge Rx Participant: No New Discharge Prescriptions: New lamoTRIgine [LaMICtal] 100 mg PO HS 28 Days tab Melatonin 6 mg PO HS 28 Days tablet Cholecalciferol [Vitamin D3] 400 unit PO DAILY tab Sertraline [Zoloft] 50 mg PO DAILY 28 Days tab Discontinued Almotriptan Malate [Axert] 12.5 mg PO DAILY PRN PRN Reason: Migraine Headache Erenumab-Aooe [Aimovig Autoinjector] 140 mg SQ Q30D Vitamin D3(Unknown Dose) 1 tab PO DAILY Discharge Medication List Cholecalciferol [Vitamin D3] 400 unit PO DAILY tab 09/12/19 [Rx] Melatonin 6 mg PO HS 28 Days tablet 09/12/19 [Rx] Sertraline [Zoloft] 50 mg PO DAILY 28 Days tab 09/12/19 [Rx] lamoTRIgine [LaMICtal] 100 mg PO HS 28 Days tab 09/12/19 [Rx] Follow up Appointment(s)/Referral(s): [facility] - 09/14/19 8:00 am (Cynthia Curry) Reginaldo Johnson Jr, DO [Primary Care Provider] - 1-2 days Patient Instructions/Handouts: Depression (DC), Help Prevent Suicide (DC) Activity/Diet/Wound Care/Special Instructions: Activity and diet as tolerated. Avoid the use of street drugs and alcohol. Take all medications as prescribed. When you are in need of refills on your medications please contact your medical provider and/or outpatient psychiatrist to have this done. Please go to scheduled outpatient appointment for aftercare treatment. If symptoms return or become worse, call the crisis line at and/or go to the nearest emergency room for evaluation. Discharge Disposition: HOME SELF-CARE
== END 2019-09-12 12:39 | disposition home or self-care (01) | DRG 885 ==
LOC: EC 10:21 → 3MHU 13:39
PROVIDERS: ADMIT Psychiatry & Neurology Psychiatry; ATTEND Psychiatry & Neurology Psychiatry
DX: F33.2 Major depressive disorder, recurrent severe without psychotic features (principal); R45.851 Suicidal ideations; F41.0 Panic disorder [episodic paroxysmal anxiety]; I10 Essential (primary) hypertension; K59.00 Constipation, unspecified; Z79.899 Other long term (current) drug therapy; Z85.72 Personal history of non-Hodgkin lymphomas; Z87.891 Personal history of nicotine dependence; Z92.3 Personal history of irradiation
CPT/HCPCS: 80053; 80061; 80306; 82075; 83036; 84443; 85025; 99285

== ENCOUNTER 2019-09-19 09:31 | Emergency (ER) | payer OTHER ==
--- NOTE | 2019-09-19 10:01 | ED ---
General Adult HPI <Yung Mueller - Last Filed: 09/19/19 12:57> - General Source: patient, family, RN notes reviewed Mode of arrival: ambulatory Limitations: no limitations <Sukh Talavera - Last Filed: 09/19/19 13:20> - General Chief complaint: Allergic Reaction Stated complaint: allergic reaction Time Seen by Provider: 09/19/19 09:50 - History of Present Illness Initial comments: 48-year-old female presents to the emergency department for chief complaint of rash. Patient states that she had a rash starting today on her chest and face. Patient states her intertriginous areas are also red and painful. Patient states that she has had a fever of 102 for the past 3 days as well as body aches and chills. States she takes Motrin and this goes down. Denies any upper respiratory symptoms. Patient states she started Lamictal about almost 2 weeks ago. States she was told if she develops a rash she needs to seek emergency treatment. (Sukh Talavera) - Related Data Home Medications Medication Instructions Recorded Confirmed Erenumab-Aooe [Aimovig 140 mg SQ QMONTH 09/19/19 09/19/19 Autoinjector] Ibuprofen [Motrin] 600 mg PO Q8HR PRN 09/19/19 09/19/19 Previous Rx's Medication Instructions Recorded Sertraline [Zoloft] 50 mg PO DAILY 28 Days tab 09/12/19 lamoTRIgine [LaMICtal] 100 mg PO HS 28 Days tab 09/12/19 predniSONE 50 mg PO DAILY #5 tablet 09/19/19 Allergies Allergy/AdvReac Type Severity Reaction Status Date / Time Beta-Blockers Allergy Rash/Hives Verified 09/19/19 11:31 (Beta-Adrenergic Bloc codeine Allergy Rash/Nightm Verified 09/19/19 11:31 sergio Sulfa (Sulfonamide Allergy Rash/Hives Verified 09/19/19 11:31 Antibiotics) sulfite Allergy Rash/Hives Verified 09/19/19 11:31 Review of Systems ROS Other: All systems not noted in ROS Statement are negative. <Yung Mueller - Last Filed: 09/19/19 12:57> ROS Other: All systems not noted in ROS Statement are negative. <Sukh Talavera - Last Filed: 09/19/19 13:20> ROS Statement: Those systems with pertinent positive or pertinent negative responses have been documented in the HPI. Past Medical History Past Medical History: Cancer, GERD/Reflux, Hypertension, Liver Disease Additional Past Medical History / Comment(s): Lymphoma with radiation 2014; MIGRAINES,4 liver hemagiomas, chronic UTI's History of Any Multi-Drug Resistant Organisms: None Reported Past Surgical History: Cholecystectomy, Tubal Ligation Additional Past Surgical History / Comment(s): colonoscopy,EGD, lasik eye surgery Past Anesthesia/Blood Transfusion Reactions: Postoperative Nausea & Vomiting (PONV) Additional Past Anesthesia/Blood Transfusion Reaction / Comment(s): PT & PT'S MOM ALSO HAVE HX PONV Past Psychological History: Anxiety, Depression, Panic Disorder Smoking Status: Former smoker Past Alcohol Use History: None Reported Past Drug Use History: None Reported - Past Family History Father Family Medical History: Cancer Mother Family Medical History: Deep Vein Thrombosis (DVT) <Sukh Talavera P - Last Filed: 09/19/19 13:20> General Exam Limitations: no limitations General appearance: alert, in no apparent distress Head exam: Present: atraumatic, normocephalic, normal inspection Eye exam: Present: normal appearance, PERRL, EOMI. Absent: scleral icterus, conjunctival injection, periorbital swelling ENT exam: Present: normal exam, normal oropharynx, mucous membranes moist, TM's normal bilaterally, normal external ear exam Neck exam: Present: normal inspection, full ROM. Absent: tenderness, meningismus, lymphadenopathy Respiratory exam: Present: normal lung sounds bilaterally. Absent: respiratory distress, wheezes, rales, rhonchi, stridor Cardiovascular Exam: Present: regular rate, normal rhythm, normal heart sounds. Absent: systolic murmur, diastolic murmur, rubs, gallop, clicks GI/Abdominal exam: Present: soft, normal bowel sounds. Absent: distended, tenderness, guarding, rebound, rigid Skin exam: Present: rash (erythematous macular rash noted to the face and chest. Patient also has erythema in the intertriginuous area of the groin. negative nikolsky sign) <Sukh Talavera P - Last Filed: 09/19/19 13:20> Course Vital Signs 09/19/19 09/19/19 09/19/19 09:35 09:38 13:09 Temperature 98.4 F 100.9 F H Pulse Rate 88 97 Respiratory 18 18 16 Rate Blood Pressure 120/81 130/79 O2 Sat by Pulse 97 99 Oximetry Medical Decision Making - Lab Data Result diagrams: 09/19/19 10:50 09/19/19 10:50 <Yung Mueller - Last Filed: 09/19/19 12:57> - Lab Data Result diagrams: 09/19/19 10:50 09/19/19 10:50 <Sukh Talavera - Last Filed: 09/19/19 13:20> - Medical Decision Making Patient reevaluated and resting comfortably in bed. Patient does have mild erythematous rash mostly of the upper chest and face. Patient states she did have a fever this morning. Patient is nontoxic in appearance. Patient is advised of the immediate need to discontinue Lamictal. Patient is also advised of need to follow-up with repeat platelet count and the next several days. Case was discussed in detail with Dr. Fritz who will follow-up with his patient tomorrow and is comfortable with discharge. Patient is also made aware of this. (Yung Mueller) - Lab Data Lab Results 09/19/19 09/19/19 09/19/19 Range/Units 10:07 10:50 10:50 WBC (3.8-10.6) k/uL RBC (3.80-5.40) m/uL Hgb (11.4-16.0) gm/dL Hct (34.0-46.0) % MCV (80.0-100.0) fL MCH (25.0-35.0) pg MCHC (31.0-37.0) g/dL RDW (11.5-15.5) % Plt Count (150-450) k/uL Neutrophils % % Lymphocytes % % Monocytes % % Eosinophils % % Basophils % % Neutrophils # (1.3-7.7) k/uL Lymphocytes # (1.0-4.8) k/uL Monocytes # (0-1.0) k/uL Eosinophils # (0-0.7) k/uL Basophils # (0-0.2) k/uL Manual Slide Review Large Platelets Poikilocytosis (manual Sodium (137-145) mmol/L Potassium (3.5-5.1) mmol/L Chloride (98-107) mmol/L Carbon Dioxide (22-30) mmol/L Anion Gap mmol/L BUN (7-17) mg/dL Creatinine (0.52-1.04) mg/dL Est GFR (CKD-EPI)AfAm (>60 ml/min/1.73 sqM) Est GFR (CKD-EPI)NonAf (>60 ml/min/1.73 sqM) Glucose (74-99) mg/dL Calcium (8.4-10.2) mg/dL Total Bilirubin (0.2-1.3) mg/dL AST (14-36) U/L ALT (4-34) U/L Alkaline Phosphatase (38-126) U/L Total Protein (6.3-8.2) g/dL Albumin (3.5-5.0) g/dL Urine Color Yellow Urine Appearance Cloudy H (Clear) Urine pH 6.0 (5.0-8.0) Ur Specific Roll 1.036 H (1.001-1.035) Urine Protein 1+ H (Negative) Urine Glucose (UA) Negative (Negative) Urine Ketones 2+ H (Negative) Urine Blood Small H (Negative) Urine Nitrite Negative (Negative) Urine Bilirubin Negative (Negative) Urine Urobilinogen 8.0 (<2.0) mg/dL Ur Leukocyte Esterase Negative (Negative) Urine RBC 8 H (0-5) /hpf Urine WBC 3 (0-5) /hpf Ur Squamous Epith Cells 3 (0-4) /hpf Calcium Oxalate Crystal Few H (None) /hpf Urine Bacteria Rare H (None) /hpf Urine Mucus Few H (None) /hpf Urine HCG, Qual Not Detected (Not Detectd) Influenza Type A RNA Not Detected (Not Detectd) Influenza Type B (PCR) Not Detected (Not Detectd) 09/19/19 09/19/19 Range/Units 10:50 10:50 WBC 4.9 (3.8-10.6) k/uL RBC 4.73 (3.80-5.40) m/uL Hgb 14.8 (11.4-16.0) gm/dL Hct 41.7 (34.0-46.0) % MCV 88.1 (80.0-100.0) fL MCH 31.3 (25.0-35.0) pg MCHC 35.6 (31.0-37.0) g/dL RDW 12.6 (11.5-15.5) % Plt Count 85 L D (150-450) k/uL Neutrophils % 84 % Lymphocytes % 7 % Monocytes % 3 % Eosinophils % 5 % Basophils % 0 % Neutrophils # 4.1 (1.3-7.7) k/uL Lymphocytes # 0.3 L (1.0-4.8) k/uL Monocytes # 0.2 (0-1.0) k/uL Eosinophils # 0.2 (0-0.7) k/uL Basophils # 0.0 (0-0.2) k/uL Manual Slide Review Performed Large Platelets Present Poikilocytosis (manual Present Sodium 134 L (137-145) mmol/L Potassium 3.4 L (3.5-5.1) mmol/L Chloride 94 L (98-107) mmol/L Carbon Dioxide 27 (22-30) mmol/L Anion Gap 13 mmol/L BUN 20 H (7-17) mg/dL Creatinine 0.81 (0.52-1.04) mg/dL Est GFR (CKD-EPI)AfAm >90 (>60 ml/min/1.73 sqM) Est GFR (CKD-EPI)NonAf 87 (>60 ml/min/1.73 sqM) Glucose 116 H (74-99) mg/dL Calcium 9.2 (8.4-10.2) mg/dL Total Bilirubin 1.6 H (0.2-1.3) mg/dL AST 36 (14-36) U/L ALT 26 (4-34) U/L Alkaline Phosphatase 86 (38-126) U/L Total Protein 7.2 (6.3-8.2) g/dL Albumin 4.2 (3.5-5.0) g/dL Urine Color Urine Appearance (Clear) Urine pH (5.0-8.0) Ur Specific Roll (1.001-1.035) Urine Protein (Negative) Urine Glucose (UA) (Negative) Urine Ketones (Negative) Urine Blood (Negative) Urine Nitrite (Negative) Urine Bilirubin (Negative) Urine Urobilinogen (<2.0) mg/dL Ur Leukocyte Esterase (Negative) Urine RBC (0-5) /hpf Urine WBC (0-5) /hpf Ur Squamous Epith Cells (0-4) /hpf Calcium Oxalate Crystal (None) /hpf Urine Bacteria (None) /hpf Urine Mucus (None) /hpf Urine HCG, Qual (Not Detectd) Influenza Type A RNA (Not Detectd) Influenza Type B (PCR) (Not Detectd) Disposition <Yung Mueller - Last Filed: 09/19/19 12:57> Is patient prescribed a controlled substance at d/c from ED?: No Time of Disposition: 13:19 <Sukh Talavera - Last Filed: 09/19/19 13:20> Clinical Impression: Allergic reaction Disposition: HOME SELF-CARE Condition: Good Instructions (If sedation given, give patient instructions): General Allergic Reaction (ED), Acute Rash (ED) Additional Instructions: Please take steroids as directed. Please follow-up with primary care tomorrow. Call today to make an appointment and tell office staff you were seen in the emergency department and he would like to see her tomorrow. As discussed you need to repeat your platelet count in the next few days. Return here if you alva ve any worsening symptoms. Prescriptions: predniSONE 50 mg PO DAILY #5 tablet Referrals: Reginaldo Johnson Jr, DO [Primary Care Provider] - 1-2 days
[2019-09-19] MEDS ORDERED: SODIUM CHLORIDE 0.9% 1,000 ML IV STA (10:24)
[2019-09-19 11:07] LABS: Appearance,Urine Cloudy (Clear); Bacteria,Urine Rare /hpf; Bilirubin,Urine Negative (Negative); Blood,Urine Small (Negative); Calcium Oxalate Crystals,Urine Few /hpf; Color,Urine Yellow; Glucose,Urine (UA) Negative (Negative); Ketones,Urine 2+ (Negative); Leukocyte Esterase,Urine Negative (Negative); Mucus,Urine Few /hpf; Nitrite,Urine Negative (Negative); Protein,Urine 1+ (Negative); RBC,Urine 8 /hpf (0-5); Specific Gravity,Urine 1.036 (1.001-1.035); Squamous Epithelial Cell,Urine 3 /hpf (0-4); WBC,Urine 3 /hpf (0-5)
[2019-09-19 11:18] LABS: ALT 26 U/L (4-34); AST 36 U/L (14-36); African American GFR (CKD) >90 (>60 ml/min/1.73 sqM); Albumin 4.2 g/dL (3.5-5.0); Alkaline Phosphatase 86 U/L (38-126); Anion Gap 13 mmol/L; Blood Urea Nitrogen 20 mg/dL (7-17); Calcium 9.2 mg/dL (8.4-10.2); Carbon Dioxide 27 mmol/L (22-30); Chloride 94 mmol/L (98-107); Glucose 116 mg/dL (74-99); Non-African American GFR(CKD) 87 (>60 ml/min/1.73 sqM); Potassium 3.4 mmol/L (3.5-5.1); Sodium 134 mmol/L (137-145); Total Bilirubin 1.6 mg/dL (0.2-1.3); Total Protein 7.2 g/dL (6.3-8.2)
--- NOTE | 2019-09-19 11:23 | XR ---
EXAMINATION TYPE: XR chest 2V DATE OF EXAM: 09/19/2019 COMPARISON: 12/18/2016 HISTORY: Fever, vomiting, and diarrhea TECHNIQUE: Frontal and lateral views of the chest are obtained. FINDINGS: There is no focal air space opacity, pleural effusion, or pneumothorax seen. The cardiac silhouette size is within normal limits. The osseous structures are intact. Cholecystectomy clips a re seen. IMPRESSION: No acute cardiopulmonary process.
[2019-09-19 11:34] LABS: Basophils % (A) 0 %; Eosinophils # (A) 0.2 k/uL (0-0.7); Eosinophils % (A) 5 %; HCT 41.7 % (34.0-46.0); HGB 14.8 gm/dL (11.4-16.0); Lymphocytes # (A) 0.3 k/uL (1.0-4.8); Lymphocytes % (A) 7 %; MCH 31.3 pg (25.0-35.0); MCHC 35.6 g/dL (31.0-37.0); MCV 88.1 fL (80.0-100.0); Mean Platelet Volume 8.9; Monocytes # (A) 0.2 k/uL (0-1.0); Monocytes % (A) 3 %; Neutrophils # (A) 4.1 k/uL (1.3-7.7); Neutrophils % (A) 84 %; RBC 4.73 m/uL (3.80-5.40); RDW 12.6 % (11.5-15.5); WBC 4.9 k/uL (3.8-10.6)
[2019-09-19 11:58] LABS: Large Platelets Present
[2019-09-19 11:59] LABS: Platelet Count 85 k/uL (150-450); Poikilocytosis (M) Present
[2019-09-19 13:13] VITALS: BP 130/79; PULSE 97; RESP 16; TEMP 100.9
== END 2019-09-19 13:30 | disposition home or self-care (01) ==
LOC: EC 09:31
DX: R21 Rash and other nonspecific skin eruption (principal); R50.9 Fever, unspecified; T42.6X5A Adverse effect of other antiepileptic and sedative-hypnotic drugs, initial encounter; Z87.891 Personal history of nicotine dependence; Z88.2 Allergy status to sulfonamides; Z88.5 Allergy status to narcotic agent; Z88.8 Allergy status to other drugs, medicaments and biological substances; Z79.899 Other long term (current) drug therapy; Z86.69 Personal history of other diseases of the nervous system and sense organs; Z85.72 Personal history of non-Hodgkin lymphomas; Z92.3 Personal history of irradiation
CPT/HCPCS: 36415; 71046; 80053; 80175; 81001; 81025; 85025; 87502; 96360; 96361; 99283

== ENCOUNTER → 2019-09-20 | Outpatient (CLI) | payer OTHER ==
[2019-09-20 11:32] LABS: Basophils % (A) 1 %; Eosinophils # (A) 0.2 k/uL (0-0.7); Eosinophils % (A) 4 %; HGB 14.3 gm/dL (11.4-16.0); Lymphocytes # (A) 0.4 k/uL (1.0-4.8); Lymphocytes % (A) 7 %; MCH 30.9 pg (25.0-35.0); MCHC 34.9 g/dL (31.0-37.0); MCV 88.4 fL (80.0-100.0); Mean Platelet Volume 9.2; Monocytes # (A) 0.2 k/uL (0-1.0); Monocytes % (A) 4 %; Neutrophils # (A) 4.7 k/uL (1.3-7.7); Neutrophils % (A) 84 %; Platelet Count 115 k/uL (150-450); RBC 4.64 m/uL (3.80-5.40); RDW 12.6 % (11.5-15.5); WBC 5.6 k/uL (3.8-10.6)
[2019-09-20 11:43] LABS: ALT 45 U/L (4-34); AST 48 U/L (14-36); African American GFR (CKD) >90 (>60 ml/min/1.73 sqM); Albumin 3.9 g/dL (3.5-5.0); Albumin/Globulin Ratio 1.4; Alkaline Phosphatase 86 U/L (38-126); Anion Gap 12 mmol/L; Blood Urea Nitrogen 16 mg/dL (7-17); Calcium 9.1 mg/dL (8.4-10.2); Carbon Dioxide 26 mmol/L (22-30); Chloride 98 mmol/L (98-107); Globulin 2.8 g/dL; Glucose 144 mg/dL (74-99); Non-African American GFR(CKD) >90 (>60 ml/min/1.73 sqM); Potassium 3.9 mmol/L (3.5-5.1); Sodium 136 mmol/L (137-145); Total Bilirubin 1.2 mg/dL (0.2-1.3); Total Protein 6.7 g/dL (6.3-8.2)
== END | disposition home or self-care (01) ==
LOC: LABWHC1 11:16
PROVIDERS: ATTEND Family Medicine
DX: L27.0 Generalized skin eruption due to drugs and medicaments taken internally (principal)
CPT/HCPCS: 36415; 80053; 82248; 85025

== ENCOUNTER 2019-09-22 18:51 | Observation (INO) | payer OTHER ==
[2019-09-22] MEDS ORDERED: MORPHINE SULFATE 4 MG/ML SYRINGE IVP STA (19:57)
[2019-09-22] MEDS ORDERED: SODIUM CHLORIDE 0.9% 1,000 ML IV STA (19:57)
--- NOTE | 2019-09-22 19:59 | ED ---
General Adult HPI - General Chief complaint: Neuro Symptoms/Deficit Stated complaint: Rash, dizzy Time Seen by Provider: 09/22/19 19:40 Source: patient, RN notes reviewed Mode of arrival: ambulatory Limitations: no limitations - History of Present Illness Initial comments: 48-year-old female with a past medical history of lymphoma, migraines, UTI, GERD, hyperlipidemia, hypertension presents to the emergency department for a chief complaint of rash. 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 Patient states that she was taking Lamictal. Patient states she had a rash starting 4 days ago. States that she had a fever that stopped 3 days ago. Patient states she started taking Lamictal 2 weeks ago. She stopped about 6 days ago. Patient was previously seen in the emergency department for this rash and Dr. Johnson was consulted. He recommended he follow up with her outpatient. Patient states that she did follow up with Dr. Johnson however this seems to be worsening. States the steroids are not helping. States that times it is worse than other times it is better. Patient states she is now having back spasms. Patient denies any mucous membrane lesions including the mouth or tongue. Patient did have erythema of the intertriginous areas under the breasts and of the groin however these have resolved. Patient states she is very worried about this rash and wants to be admitted for further management as it does not seem to be improving.Patient has no other complaints at this time including shortness of breath, chest pain, abdominal pain, nausea or vomiting, headache, or visual changes. - Related Data Home Medications Medication Instructions Recorded Confirmed Erenumab-Aooe [Aimovig 140 mg SQ QMONTH 09/19/19 09/19/19 Autoinjector] Ibuprofen [Motrin] 600 mg PO Q8HR PRN 09/19/19 09/19/19 Previous Rx's Medication Instructions Recorded Sertraline [Zoloft] 50 mg PO DAILY 28 Days tab 09/12/19 lamoTRIgine [LaMICtal] 100 mg PO HS 28 Days tab 09/12/19 predniSONE 50 mg PO DAILY #5 tablet 09/19/19 Allergies Allergy/AdvReac Type Severity Reaction Status Date / Time Beta-Blockers Allergy Rash/Hives Verified 09/19/19 11:31 (Beta-Adrenergic Bloc codeine Allergy Rash/Nightm Verified 09/19/19 11:31 sergio lamotrigine [From Lamictal] Allergy Rash/Hives Verified 09/22/19 19:20 Sulfa (Sulfonamide Allergy Rash/Hives Verified 09/19/19 11:31 Antibiotics) sulfite Allergy Rash/Hives Verified 09/19/19 11:31 Review of Systems ROS Statement: Those systems with pertinent positive or pertinent negative responses have been documented in the HPI. ROS Other: All systems not noted in ROS Statement are negative. Past Medical History Past Medical History: Cancer, GERD/Reflux, Hypertension, Liver Disease Additional Past Medical History / Comment(s): Lymphoma with radiation 2013; MIGRAINES,4 liver hemagiomas, chronic UTI's History of Any Multi-Drug Resistant Organisms: None Reported Past Surgical History: Cholecystectomy, Tubal Ligation Additional Past Surgical History / Comment(s): colonoscopy,EGD, lasik eye surgery Past Anesthesia/Blood Transfusion Reactions: Postoperative Nausea & Vomiting (PONV) Additional Past Anesthesia/Blood Transfusion Reaction / Comment(s): PT & PT'S MOM ALSO HAVE HX PONV Past Psychological History: Anxiety, Depression, Panic Disorder Smoking Status: Former smoker Past Alcohol Use History: None Reported Past Drug Use History: None Reported - Past Family History Father Family Medical History: Cancer Mother Family Medical History: Deep Vein Thrombosis (DVT) General Exam Limitations: no limitations General appearance: alert, in no apparent distress Head exam: Present: atraumatic, normocephalic, normal inspection Eye exam: Present: normal appearance, PERRL, EOMI. Absent: scleral icterus, conjunctival injection, periorbital swelling ENT exam: Present: normal exam, normal oropharynx (no lesions), mucous membranes moist, TM's normal bilaterally, normal external ear exam Neck exam: Present: normal inspection, full ROM. Absent: tenderness, meningismus, lymphadenopathy Respiratory exam: Present: normal lung sounds bilaterally. Absent: respiratory distress, wheezes, rales, rhonchi, stridor Cardiovascular Exam: Present: regular rate, normal rhythm, normal heart sounds. Absent: systolic murmur, diastolic murmur, rubs, gallop, clicks GI/Abdominal exam: Present: soft, normal bowel sounds. Absent: distended, tenderness, guarding, rebound, rigid Skin exam: Present: other (Patient has a macular erythematous coalescing rash noted on the trunk and extremities. Negative Nikolsky. There is no erythema in the intertriginous areas.) Course Vital Signs 09/22/19 09/22/19 19:17 21:50 Temperature 98.3 F 98.0 F Pulse Rate 106 H 72 Respiratory 20 18 Rate Blood Pressure 154/115 115/82 O2 Sat by Pulse 98 98 Oximetry Medical Decision Making - Medical Decision Making Vitals are stable. Patient initially hypertensive however this improved throughout her stay. May have been related to anxiety on initial presentation. CBC unremarkable. CMP does show hyperglycemia which was discussed with the patient. Dr. Maloney also visualized the patient. He talked with Dr. Fritz, at this time patient will be admitted for IV steroids as current steroids do not seem to be improving. As mentioned in physical exam there are no mucous membrane changes or sloughing of skin. - Lab Data Result diagrams: 09/22/19 20:10 09/22/19 20:10 Lab Results 09/22/19 09/22/19 09/22/19 Range/Units 20:10 20:10 20:10 WBC 4.9 (3.8-10.6) k/uL RBC 4.84 (3.80-5.40) m/uL Hgb 14.6 (11.4-16.0) gm/dL Hct 42.8 (34.0-46.0) % MCV 88.3 (80.0-100.0) fL MCH 30.1 (25.0-35.0) pg MCHC 34.1 (31.0-37.0) g/dL RDW 12.2 (11.5-15.5) % Plt Count 182 D (150-450) k/uL Neutrophils % 82 % Lymphocytes % 12 % Monocytes % 3 % Eosinophils % 0 % Basophils % 1 % Neutrophils # 4.0 (1.3-7.7) k/uL Lymphocytes # 0.6 L (1.0-4.8) k/uL Monocytes # 0.2 (0-1.0) k/uL Eosinophils # 0.0 (0-0.7) k/uL Basophils # 0.1 (0-0.2) k/uL PT 9.7 (9.0-12.0) sec INR 0.9 (<1.2) APTT 20.8 L (22.0-30.0) sec Sodium 134 L (137-145) mmol/L Potassium 4.1 (3.5-5.1) mmol/L Chloride 98 (98-107) mmol/L Carbon Dioxide 24 (22-30) mmol/L Anion Gap 12 mmol/L BUN 17 (7-17) mg/dL Creatinine 0.52 (0.52-1.04) mg/dL Est GFR (CKD-EPI)AfAm >90 (>60 ml/min/1.73 sqM) Est GFR (CKD-EPI)NonAf >90 (>60 ml/min/1.73 sqM) Glucose 267 H (74-99) mg/dL Calcium 9.1 (8.4-10.2) mg/dL Total Bilirubin 0.8 (0.2-1.3) mg/dL AST 49 H (14-36) U/L ALT 94 H (4-34) U/L Alkaline Phosphatase 91 (38-126) U/L Total Protein 6.5 (6.3-8.2) g/dL Albumin 3.9 (3.5-5.0) g/dL Disposition Clinical Impression: Rash, Drug eruption Disposition: ADMITTED IP TO THIS [facility] Condition: Fair Is patient prescribed a controlled substance at d/c from ED?: No Referrals: Reginaldo Johnson Jr, [Primary Care Provider] - 1-2 days Time of Disposition: 22:25
[2019-09-22] MEDS ORDERED: ONDANSETRON 4 MG/2 ML VIAL IVP STA (20:18)
[2019-09-22 20:42] LABS: ALT 94 U/L (4-34); AST 49 U/L (14-36); African American GFR (CKD) >90 (>60 ml/min/1.73 sqM); Albumin 3.9 g/dL (3.5-5.0); Alkaline Phosphatase 91 U/L (38-126); Anion Gap 12 mmol/L; Blood Urea Nitrogen 17 mg/dL (7-17); Calcium 9.1 mg/dL (8.4-10.2); Carbon Dioxide 24 mmol/L (22-30); Chloride 98 mmol/L (98-107); Glucose 267 mg/dL (74-99); Non-African American GFR(CKD) >90 (>60 ml/min/1.73 sqM); Potassium 4.1 mmol/L (3.5-5.1); Sodium 134 mmol/L (137-145); Total Bilirubin 0.8 mg/dL (0.2-1.3); Total Protein 6.5 g/dL (6.3-8.2)
[2019-09-22 20:43] LABS: Basophils # (A) 0.1 k/uL (0-0.2); Basophils % (A) 1 %; Eosinophils % (A) 0 %; HCT 42.8 % (34.0-46.0); HGB 14.6 gm/dL (11.4-16.0); Lymphocytes # (A) 0.6 k/uL (1.0-4.8); Lymphocytes % (A) 12 %; MCH 30.1 pg (25.0-35.0); MCHC 34.1 g/dL (31.0-37.0); MCV 88.3 fL (80.0-100.0); Mean Platelet Volume 8.6; Monocytes # (A) 0.2 k/uL (0-1.0); Monocytes % (A) 3 %; Neutrophils % (A) 82 %; RBC 4.84 m/uL (3.80-5.40); RDW 12.2 % (11.5-15.5); WBC 4.9 k/uL (3.8-10.6)
[2019-09-22 20:50] LABS: Platelet Count 182 k/uL (150-450)
[2019-09-22 20:52] LABS: INR 0.9 (<1.2); Partial Thromboplastin Time 20.8 sec (22.0-30.0); Prothrombin Time 9.7 sec (9.0-12.0)
[2019-09-22] MEDS ORDERED: FAMOTIDINE 20 MG/2 ML VIAL IV STA (22:07)
[2019-09-22] MEDS ORDERED: diphenhydrAMINE 50 MG/ML 1 ML VIAL IVP STA (22:07)
[2019-09-22] MEDS ORDERED: methylPREDNISolone SOD SUCCI 125 MG/2 ML VIAL IV STA (22:08)
[2019-09-22] MEDS ORDERED: NALOXONE 0.4 MG/ML 1 ML VIAL IV PRN (22:26)
[2019-09-22] MEDS ORDERED: IBUPROFEN 400 MG TAB PO PRN (22:26)
[2019-09-22] MEDS ORDERED: MORPHINE SULFATE 4 MG/ML SYRINGE IV PRN (22:26)
[2019-09-22] MEDS: SODIUM CHLORIDE 0.9% 1,000 ML IV SCH (22:50)
[2019-09-22] MEDS: methylPREDNISolone SOD SUCCI 125 MG/2 ML VIAL IV SCH (23:04)
[2019-09-22] MEDS: diphenhydrAMINE 50 MG/ML 1 ML VIAL IVP SCH (23:04)
[2019-09-23] MEDS: methylPREDNISolone SOD SUCCI 125 MG/2 ML VIAL IV SCH ×2 (05:21→10:49)
[2019-09-23] MEDS: diphenhydrAMINE 50 MG/ML 1 ML VIAL IVP SCH ×2 (05:21→10:49)
[2019-09-23 07:13] VITALS: RESP 18
[2019-09-23 07:14] VITALS: BP 129/81; PULSE 96; TEMP 97.1
[2019-09-23] MEDS: SODIUM CHLORIDE 0.9% 1,000 ML IV SCH (07:49)
[2019-09-23 10:44] LABS: Appearance,Urine Clear (Clear); Bilirubin,Urine Negative (Negative); Blood,Urine Negative (Negative); Color,Urine Light Yellow; Glucose,Urine (UA) 4+ (Negative); Ketones,Urine 1+ (Negative); Leukocyte Esterase,Urine Negative (Negative); Nitrite,Urine Negative (Negative); Protein,Urine Negative (Negative); Specific Gravity,Urine 1.014 (1.001-1.035); Urobilinogen,Urine <2.0 mg/dL (<2.0)
[2019-09-23 12:00] LABS: Glucose,Whole Blood 154 mg/dL (75-99)
[2019-09-23] MEDS ORDERED: INSULIN ASPART (NovoLOG) 100 UNIT/ML VIAL SQ SCH (12:30)
--- NOTE | 2019-09-23 15:42 | P.HPIM ---
History of Present Illness H&P Date: 09/23/19 Chief Complaint: Worsening rash History and Physical and Discharge Summary His is a 48-year-old female history of anxiety, depression, panic disorder, gastroesophageal reflux disease, and multiple other medical issues, presented to the ER with complaints of worsening rash. 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 Previously on Lamictal; had been on it for 2 weeks quit taking 6 days ago. Rash started approximate 4 days ago, treated with steroids outpatient by PCP, and rash worsened. PCP Dr. Johnson recommended patient follow up outpatient,as her LFTs and platelets had significantly improved. Patient insisted on further monitoring of rash many for observation overnight. Treated with IV Benadryl IV steroids overnight with significant clinical improvement. Denies chest pain, palpitations and shortness of breath. Denies lightheadedness, dizziness or focal deficits. Patient is being discharged home. Afebrile, normal WBC. No sloughing of skin. Review of Systems ROS Statement: Those systems with pertinent positive or pertinent negative responses have been documented in the HPI. ROS Other: All systems not noted in ROS Statement are negative. Past Medical History Past Medical History: Cancer, GERD/Reflux, Hypertension, Liver Disease Additional Past Medical History / Comment(s): Lymphoma with radiation 2013; MIGRAINES,4 liver hemagiomas, chronic UTI's History of Any Multi-Drug Resistant Organisms: None Reported Past Surgical History: Cholecystectomy, Tubal Ligation Additional Past Surgical History / Comment(s): colonoscopy,EGD, lasik eye surgery Past Anesthesia/Blood Transfusion Reactions: Postoperative Nausea & Vomiting (PONV) Additional Past Anesthesia/Blood Transfusion Reaction / Comment(s): PT & PT'S M OM ALSO HAVE HX PONV Past Psychological History: Anxiety, Depression, Panic Disorder Smoking Status: Never smoker Past Alcohol Use History: None Reported Additional Past Alcohol Use History / Comment(s): quit smoking 2017; started smoking age 13, <1 PPD Past Drug Use History: None Reported - Past Family History Father Family Medical History: Cancer Mother Family Medical History: Deep Vein Thrombosis (DVT) Medications and Allergies Home Medications Medication Instructions Recorded Confirmed Type Erenumab-Aooe [Aimovig 140 mg SQ Q30D 09/19/19 09/22/19 History Autoinjector] Ibuprofen 400 mg PO Q8H PRN #1 tab 09/23/19 Rx diphenhydrAMINE [Benadryl] 25 mg PO Q6H PRN #1 capsule 09/23/19 Rx predniSONE 50 mg PO TID #21 tablet 09/23/19 Rx Allergies Allergy/AdvReac Type Severity Reaction Status Date / Time Beta-Blockers Allergy Rash/Hives Verified 09/22/19 23:38 (Beta-Adrenergic Bloc codeine Allergy Rash/Nightm Verified 09/22/19 23:38 sergio lamotrigine [From Lamictal] Allergy Rash/Hives Verified 09/22/19 23:38 Sulfa (Sulfonamide Allergy Rash/Hives Verified 09/22/19 23:38 Antibiotics) sulfite Allergy Rash/Hives Verified 09/22/19 23:38 Physical Exam Vitals: Vital Signs Temp Pulse Pulse Resp BP BP Pulse Ox 09/23/19 07:13 97.1 F L 96 18 129/81 96 09/23/19 07:04 61 18 09/23/19 04:15 97.5 F L 62 20 108/68 97 09/22/19 23:31 97.7 F 67 14 155/91 100 09/22/19 23:08 98.0 F 82 18 126/80 100 09/22/19 21:50 98.0 F 72 18 115/82 98 09/22/19 19:17 98.3 F 106 H 20 154/115 98 Intake and Output 09/23/19 09/23/19 09/23/19 06:59 14:59 22:59 Intake Total 100 710 Balance 100 710 Intake: Oral 100 710 Other: # Voids 1 5 Weight 78.925 kg PHYSICAL EXAM: VITAL SIGNS: As above GENERAL: Sitting up in bed, no acute distress HEENT: Conjunctivae normal. eyes normal. Oral mucosa moist. NECK: No JVD. No thyroid enlargement. No LNs CARDIOVASCULAR: S1, S2 regular.. No murmur RESPIRATION: Breath sounds diminished in the bases. No rhonchi or crackles. No bronchial breathing. ABDOMEN: Soft, nontender . No guarding. no masses palpable. No ascites, No hepatosplenomegaly.Bowel sounds heard. LEGS: No edema. no swelling PSYCHIATRY: Alert and oriented X3, mood and affect normal. NERVOUS SYSTEM: Cranial N 2-12 grossly normal. Moves all 4 limbs. No focal deficits. Strength and sensation grossly intact.. Skin: Macular erythematous rash on torso arms and back, significantly improved. No sloughing of skin. Lymphatic system. No LN neck axilla Results CBC & Chem 7: 09/22/19 20:10 09/22/19 20:10 Labs: Abnormal Lab Results - Last 24 Hours (Table) 09/22/19 09/22/19 09/22/19 Range/Units 20:10 20:10 20:10 Lymphocytes # 0.6 L (1.0-4.8) k/uL APTT 20.8 L (22.0-30.0) sec Sodium 134 L (137-145) mmol/L Glucose 267 H (74-99) mg/dL POC Glucose (mg/dL) (75-99) mg/dL AST 49 H (14-36) U/L ALT 94 H (4-34) U/L Urine Glucose (UA) (Negative) Urine Ketones (Negative) 09/23/19 09/23/19 Range/Units 09:00 11:58 Lymphocytes # (1.0-4.8) k/uL APTT (22.0-30.0) sec Sodium (137-145) mmol/L Glucose (74-99) mg/dL POC Glucose (mg/dL) 154 H (75-99) mg/dL AST (14-36) U/L ALT (4-34) U/L Urine Glucose (UA) 4+ H (Negative) Urine Ketones 1+ H (Negative) Thrombosis Risk Factor Assmnt - Choose All That Apply Any of the Below Risk Factors Present?: Yes Each Factor Represents 1 point: Age 41-60 years, Obesity (BMI >25) Thrombosis Risk Factor Assessment Total Risk Factor Score: 2 Thrombosis Risk Factor Assessment Level: Low Risk Assessment and Plan Assessment: Rash, drug eruption possibly secondary to Lamictal, Possibly erythematous multiforme, 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 Plan: Continue current medication regime ,monitoring antidromic treatment. Significant clinical improvement. Patient is being discharged home on prednisone taper, in a stable condition with guarded prognosis. Instructed to follow-up with Dr. Johnson on Thursday for further instructions on steroid taper. Discharge Medication List Erenumab-Aooe [Aimovig Autoinjector] 140 mg SQ Q30D 09/19/19 [History] Ibuprofen 400 mg PO Q8H PRN #1 tab 09/23/19 [Rx] diphenhydrAMINE [Benadryl] 25 mg PO Q6H PRN #1 capsule 09/23/19 [Rx] predniSONE 50 mg PO TID #21 tablet 09/23/19 [Rx] The impression and plan of care has been dictated as directed. : I performed a history and examination of this patient, discussed the same with the dictator. I agree with the dictator's note ,documented as a scribe. Any additional findings or plans will be noted.
== END 2019-09-23 15:30 | disposition home or self-care (01) ==
LOC: EC 18:51 → 6NMEDSUR 22:12
PROVIDERS: ADMIT Family Medicine; ATTEND Family Medicine
DX: L27.0 Generalized skin eruption due to drugs and medicaments taken internally (principal); T50.905A Adverse effect of unspecified drugs, medicaments and biological substances, initial encounter; Z85.72 Personal history of non-Hodgkin lymphomas; K21.9 Gastro-esophageal reflux disease without esophagitis; I10 Essential (primary) hypertension; E78.5 Hyperlipidemia, unspecified; L51.1 Stevens-Johnson syndrome; D18.03 Hemangioma of intra-abdominal structures; F41.9 Anxiety disorder, unspecified; F32.9 Major depressive disorder, single episode, unspecified; Z87.891 Personal history of nicotine dependence; Z92.3 Personal history of irradiation; Z87.440 Personal history of urinary (tract) infections; Z90.49 Acquired absence of other specified parts of digestive tract; Z80.9 Family history of malignant neoplasm, unspecified; Z83.2 Family history of diseases of the blood and blood-forming organs and certain disorders involving the immune mechanism; Z79.1 Long term (current) use of non-steroidal anti-inflammatories (NSAID); Z79.899 Other long term (current) drug therapy; Z88.2 Allergy status to sulfonamides; Z88.5 Allergy status to narcotic agent; Z88.8 Allergy status to other drugs, medicaments and biological substances; Z98.51 Tubal ligation status
CPT/HCPCS: 96376; 96361; 96374; 96375; 99284; 36415; 80053; 80175; 85025; 85610; 85730; 81003; G0378 ×2; J2270; J1200 ×2; J2930 ×2; J2405

== ENCOUNTER → 2019-10-07 | Outpatient (CLI) | payer OTHER ==
[2019-10-07 12:42] LABS: Basophils # (A) 0.1 k/uL (0-0.2); Basophils % (A) 1 %; Eosinophils # (A) 0.1 k/uL (0-0.7); Eosinophils % (A) 1 %; HCT 46.6 % (34.0-46.0); HGB 15.1 gm/dL (11.4-16.0); Lymphocytes # (A) 1.4 k/uL (1.0-4.8); Lymphocytes % (A) 16 %; MCHC 32.5 g/dL (31.0-37.0); MCV 92.6 fL (80.0-100.0); Mean Platelet Volume 7.4; Monocytes # (A) 0.5 k/uL (0-1.0); Monocytes % (A) 5 %; Neutrophils # (A) 6.9 k/uL (1.3-7.7); Neutrophils % (A) 76 %; Platelet Count 220 k/uL (150-450); RBC 5.04 m/uL (3.80-5.40); RDW 12.6 % (11.5-15.5)
[2019-10-07 18:27] LABS: Albumin 4.6 g/dL (3.80-4.90); Albumin/Globulin Ratio 2.88 (1.60-3.17); Bilirubin, Conjugated 0.4 mg/dL (0.20-0.40); Globulin 1.6 g/dL (1.6-3.3); Total Bilirubin 1.4 mg/dL (0.2-1.2); Total Protein 6.2 g/dL (6.2-8.2)
== END | disposition home or self-care (01) ==
LOC: LABWHC1 11:57
PROVIDERS: ATTEND Family Medicine
DX: L27.0 Generalized skin eruption due to drugs and medicaments taken internally (principal); D69.59 Other secondary thrombocytopenia
CPT/HCPCS: 36415; 80076; 85025

== ENCOUNTER → 2019-11-16 | Outpatient (CLI) | payer OTHER ==
--- NOTE | 2019-11-16 10:28 | US ---
EXAMINATION TYPE: US thyroid st tissue head/neck DATE OF EXAM: 11/16/2019 COMPARISON: Chest CT August 17, 2017 CLINICAL HISTORY: R22.1 Neck lump. Patient states feeling swollen lymph nodes bilaterally for 9 days at clavicle region Area of concern and neck scanned. No prominent abnormal lymph nodes seen. IMPRESSION: No obvious solid or cystic mass, fluid collection, or suspicious adenopathy on images sa nata bilateral supraclavicular region.
== END | disposition home or self-care (01) ==
LOC: RADUSWWP 09:29
PROVIDERS: ATTEND Family Medicine
DX: R22.1 Localized swelling, mass and lump, neck (principal); Z88.2 Allergy status to sulfonamides
CPT/HCPCS: 76536

== ENCOUNTER → 2020-02-08 | Outpatient (CLI) | payer MEDICAID, OTHER ==
--- NOTE | 2020-02-09 11:27 | MM ---
Reason for exam: screening (asymptomatic). Last mammogram was performed 5 years and 1 month ago. History: Patient is postmenopausal and history of other cancer. Family history of breast cancer in aunt. Took hormonal contraceptives for 10 years. Physical Findings: A clinical breast exam by your physician is recommended on an annual basis and results should be correlated with mammographic findings. MG 3D Screening Mammo W/Cad Bilateral CC and MLO view(s) were taken. Prior study comparison: December 28, 2014, bilateral MG screening mammo w CAD. November 17, 2006, bilateral screening mammogram w/CAD. There are scattered fibroglandular densities. There is no discrete abnormality. No significant changes when compared with prior studies. ASSESSMENT: Negative, BI-RAD 1 RECOMMENDATION: Routine screening mammogram of both breasts in 1 year.
== END | disposition home or self-care (01) ==
LOC: RADMAMWWP 07:55
PROVIDERS: ATTEND Obstetrics & Gynecology Gynecology
DX: Z12.31 Encounter for screening mammogram for malignant neoplasm of breast (principal)
CPT/HCPCS: 77063; 77067

== ENCOUNTER → 2020-05-01 | Outpatient (CLI) | payer OTHER ==
--- NOTE | 2020-05-01 16:19 | US ---
EXAMINATION TYPE: US abdomen complete DATE OF EXAM: 05/01/2020 COMPARISON: CT 07/21/2019 & MRI 10/24/2014 CLINICAL HISTORY: R10.9 ABDOMINAL PAIN. Pt states abnormal LFT's, GB removed EXAM MEASUREMENTS: Liver Length: 14.8 cm CBD: 0.4 cm Spleen: 10.4 cm Right Kidney: 10.9 x 4.5 x 5.8 cm Left Kidney: 11.0 x 4.8 x 4.6 cm Pancreas: wnl, tail obscured by overlying bowel gas Liver: 3 hyperechoic lesions within right lobe, probable hemangiomas as visualized on MRI, largest r ight anterior lobe= 2.3 x 1.6 x 3.2 cm Gallbladder: Surgically absent Evidence for sonographic Rojas's sign: No CBD: wnl Spleen: wnl Right Kidney: wnl Left Kidney: wnl Upper IVC: wnl Abd Aorta: wnl IMPRESSION: 1. Findings within the liver can be compatible with hemangiomas.
== END | disposition home or self-care (01) ==
LOC: RADUSWWP 06:56
PROVIDERS: ATTEND Family Medicine
DX: R10.9 Unspecified abdominal pain (principal)
CPT/HCPCS: 76700

== ENCOUNTER → 2020-08-09 | Outpatient (CLI) | payer OTHER ==
--- NOTE | 2020-08-09 13:02 | CT ---
EXAMINATION TYPE: CT ChestAbdPelvis w con DATE OF EXAM: 08/09/2020 COMPARISON: 07/21/2019 and 07/20/2018 HISTORY: 49-year-old female Lymphoma. Rectal area. TECHNIQUE: Contiguous axial scanning of the chest, abdomen, and pelvis performed with IV Contrast, pa tient injected with 100 mL of Isovue M300. Delayed images through the kidneys were obtained. Coronal/ sagittal reconstructions performed. CT DLP: 962 mGycm Automated exposure control for dose reduction was used. FINDINGS: CHEST: Heart is normal size without pericardial effusion. Aorta normal caliber with conventional arthrosis branching anatomy. No thoracic lymphadenopathy by CT size criteria. No consolidation or pleural effusion. ABDOMEN: Tiny hiatal hernia. Approximately 4 hepatic lesions measuring up to 2.3 cm were present previously. Prior exams suggested possible hemangiomas. No new focal liver lesion. No biliary ductal dilatation. Portal venous system is patent. Cholecystectomy clips. Adrenal glands, kidneys, spleen, and pancreas appear within normal limits. No dilated small bowel, free fluid, or free air. No mesenteric or retroperitoneal lymphadenopathy. Normal appendix. Oral contrast progressed to the distal transverse colon. Hmvm-ai-lxghgayi stool the left side of the colon. No pericolonic inflammatory change. PELVIS: Bladder is urine distended. Uterus is retroverted. Bilateral tubal ligation clips. Tiny pelvic phlebo liths. Neither ovary well delineated. No abnormal fluid collection in the pelvis or pelvic lymphadeno gabriela. BONES: Mild degenerative disc disease L5-S1. No osseous destructive process. IMPRESSION: 1. STABLE HEPATIC LESIONS MEASURING UP TO 2.3 CM, POSSIBLE HEMANGIOMAS. 2. NO NEW MASS OR LYMPHADENOPATHY TO SUGGEST DISEASE RECURRENCE. 3. TINY HIATAL HERNIA.
== END | disposition home or self-care (01) ==
LOC: RADCTMAIN 09:29
PROVIDERS: ATTEND Internal Medicine Hematology & Oncology
DX: K76.89 Other specified diseases of liver (principal); K44.9 Diaphragmatic hernia without obstruction or gangrene; C83.80 Other non-follicular lymphoma, unspecified site; Z88.5 Allergy status to narcotic agent
CPT/HCPCS: 71260; 74177; Q9967 ×2

== ENCOUNTER 2022-07-13 07:51 | Emergency (ER) | payer BC ==
--- NOTE | 2022-07-13 08:13 | ED ---
General Adult HPI - General Chief complaint: Upper Respiratory Infection Stated complaint: Cough Time Seen by Provider: 07/13/22 08:01 Source: patient Mode of arrival: ambulatory Limitations: no limitations - History of Present Illness Initial comments: Dictation was produced using [employer] dictation software. please excuse any grammatical, word or spelling errors. Chief Complaint: 51-year-old female presents emergency department for cough and congestion History of Present Illness: 81-year-old female presents emergency department for worsening cough and congestion. Patient states that she initially began experiencing symptoms 2 weeks ago. She states her symptoms lasted Thursday before . Symptoms persisted for several days however did improve. Patient was feeling better for a couple days when all of a sudden her symptoms return approximately 4-5 days ago. Patient complains of cough, congestion, mild sore throat. Patient's is sick. Patient is a history of lymphoma that has been treated with patient therapy several years ago. Patient does not take any daily medications. Patient is otherwise healthy. The ROS documented in this emergency department record has been reviewed and confirmed by me. Those systems with pertinent positive or negative responses have been documented in the HPI. All other systems are other negative and/or noncontributory. PHYSICAL EXAM: General Impression: Alert and oriented x3, not in acute distress HEENT: Normocephalic atraumatic, extra-ocular movements intact, pupils equal and reactive to light bilaterally, mucous membranes moist. Cardiovascular: Heart regular rate and rhythm Chest: Able to complete full sentences, no retractions, no tachypnea, clear to auscultation bilaterally Abdomen: abdomen soft, non-tender, non-distended, no organomegaly Musculoskeletal: Pulses present and equal in all extremities, no peripheral edema Motor: no focal deficits noted Neurological: CN II-XII grossly intact, no focal motor or sensory deficits noted Skin: Intact with no visualized rashes Psych: Normal affect and mood ED course: 51-year-old female with no significant comorbidities presents emergency department for URI type symptoms. Physical examination is benign. Signs upon arrival are within acceptable limits. Nursing notes and chart review was performed 4 panel vital PCR is negative for influenza, coronavirus and RSV. Chest x-ray is nonacute. Patient observed in emergency department for an hour and 45 minutes. Reevaluated at bedside at 9:40 AM found to be in stable medical condition. Patient likely suffering from viral URI. She is given a prescription for Zithromax to take in a [id number] pattern. Patient otherwise advised follow-up care doctor. - Related Data Home Medications Medication Instructions Recorded Confirmed Erenumab-Aooe [Aimovig 140 mg SQ Q30D 09/19/19 09/22/19 Autoinjector] Previous Rx's Medication Instructions Recorded Ibuprofen 400 mg PO Q8H PRN #1 tab 09/23/19 diphenhydrAMINE [Benadryl] 25 mg PO Q6H PRN #1 capsule 09/23/19 predniSONE 50 mg PO TID #21 tablet 09/23/19 Azithromycin [Zithromax Z Pack] 1 tab PO DIRECTED #6 tab 07/13/22 Allergies Allergy/AdvReac Type Severity Reaction Status Date / Time Beta-Blockers Allergy Rash/Hives Verified 07/13/22 07:56 (Beta-Adrenergic Bloc codeine Allergy Rash/Nightm Verified 07/13/22 07:56 sergio lamotrigine [From Lamictal] Allergy Rash/Hives Verified 07/13/22 07:56 Sulfa (Sulfonamide Allergy Rash/Hives Verified 07/13/22 07:56 Antibiotics) sulfite Allergy Rash/Hives Verified 07/13/22 07:56 Review of Systems ROS Statement: Those systems with pertinent positive or pertinent negative responses have been documented in the HPI. ROS Other: All systems not noted in ROS Statement are negative. Past Medical History Past Medical History: Cancer, GERD/Reflux, Hypertension, Liver Disease Additional Past Medical History / Comment(s): Lymphoma with radiation 2013; MIGRAINES,4 liver hemagiomas, chronic UTI's History of Any Multi-Drug Resistant Organisms: None Reported Past Surgical History: Cholecystectomy, Tubal Ligation Additional Past Surgical History / Comment(s): colonoscopy,EGD, lasik eye adrián jessy Past Anesthesia/Blood Transfusion Reactions: Postoperative Nausea & Vomiting (PONV) Additional Past Anesthesia/Blood Transfusion Reaction / Comment(s): PT & PT'S MOM ALSO HAVE HX PONV Past Psychological History: Anxiety, Depression, Panic Disorder Smoking Status: Never smoker Past Alcohol Use History: Occasional Past Drug Use History: Marijuana - Past Family History Father Family Medical History: Cancer Mother Family Medical History: Deep Vein Thrombosis (DVT) General Exam Limitations: no limitations Course Vital Signs 07/13/22 07/13/22 07:54 08:20 Temperature 98.9 F Pulse Rate 93 Respiratory 20 18 Rate Blood Pressure 134/90 O2 Sat by Pulse 98 Oximetry Medical Decision Making - Lab Data Lab Results 07/13/22 Range/Units 08:10 Influenza Type A (PCR) Not Detected (Not Detectd) Influenza Type B (PCR) Not Detected (Not Detectd) RSV (PCR) Not Detected (Not Detectd) SARS-CoV-2 (PCR) Not Detected (Not Detectd) Disposition Clinical Impression: Viral URI Disposition: HOME SELF-CARE Condition: Good Instructions (If sedation given, give patient instructions): Upper Respiratory Infection (ED) Prescriptions: Azithromycin [Zithromax Z Pack] 1 tab PO DIRECTED #6 tab Is patient prescribed a controlled substance at d/c from ED?: No Referrals: Duy Devries DO [Primary Care Provider] - 1-2 days Time of Disposition: 09:39
[2022-07-13 08:21] VITALS: RESP 18
--- NOTE | 2022-07-13 08:46 | XR ---
EXAMINATION TYPE: XR chest 2V DATE OF EXAM: 07/13/2022 8:31 AM COMPARISON: Chest radiographs from 09/19/2019 TECHNIQUE: XR chest 2V Frontal and lateral views of the chest. CLINICAL INDICATION:Female, 51 years old with history of cough; FINDINGS: Lungs/Pleura: There is no evidence of pleural effusion, focal consolidation, or pneumothorax. Pulmonary vascularity: Unremarkable. Heart/mediastinum: Cardiomediastinal silhouette is unremarkable. Musculoskeletal: No acute osseous pathology. IMPRESSION: No acute cardiopulmonary disease/process. No change from prior.
[2022-07-13 10:14] VITALS: BP 113/86; PULSE 87; TEMP 98
== END 2022-07-13 10:12 | disposition home or self-care (01) ==
LOC: EC 07:51
DX: J06.9 Acute upper respiratory infection, unspecified (principal); I10 Essential (primary) hypertension; F41.9 Anxiety disorder, unspecified; F32.A Depression, unspecified; F12.90 Cannabis use, unspecified, uncomplicated; Z88.8 Allergy status to other drugs, medicaments and biological substances; Z88.5 Allergy status to narcotic agent; Z88.2 Allergy status to sulfonamides; Z20.822 Contact with and (suspected) exposure to COVID-19
CPT/HCPCS: 71046; 87636; 99283

== ENCOUNTER → 2022-11-19 | Outpatient (CLI) | payer BC ==
--- NOTE | 2022-11-20 08:24 | MM ---
Reason for Exam: Screening (asymptomatic). Last mammogram was performed 2 year(s) and 9 month(s) ago. Patient History: Menarche at age 13. First Full-Term at age 23. Postmenopausal. Other cancer. Patient used Hormonal Contraceptives for 10 years. Maternal aunt had breast cancer. Risk Values: Sena 5 year model risk: 0.9%. NCI Lifetime model risk: 7.9%. Prior Study Comparison: 11/17/2006 Bilateral Screening Mammogram, [facility]. 12/28/2014 Bilateral Screening Mammogram, [facility]. 02/08/2020 Bilateral Screening Mammogram, [facility]. Tissue Density: The breast tissue is heterogeneously dense. This may lower the sensitivity of mammography. Findings: Analyzed By CAD. There is no suspicious group of microcalcifications or new suspicious mass in either breast. Overall Assessment: Negative, BI-RAD 1 Management: Screening Mammogram of both breasts in 1 year. A clinical breast exam by your physician is recommended on an annual basis and results should be correlated with mammographic findings. Electronically signed and approved by: Christoph Horton M.D. Radiologis
== END | disposition home or self-care (01) ==
LOC: RADMAMWWP 13:00
PROVIDERS: ATTEND Internal Medicine Hematology & Oncology
DX: Z12.31 Encounter for screening mammogram for malignant neoplasm of breast (principal); Z78.0 Asymptomatic menopausal state; Z80.3 Family history of malignant neoplasm of breast
CPT/HCPCS: 77067

== ENCOUNTER → 2023-07-16 | Day surgery (SDC) | payer BC, OTHER ==
[~2023-07-16] MED LIST changes: -LIDOCAINE 1% 20 ML VIAL (10MG/ML) FOR IV START INTRADERMA PRN; +ONDANSETRON 4 MG/2 ML VIAL IVP ONE; +ONDANSETRON 4 MG/2 ML VIAL ONE; +PROPOFOL 10 MG/ML 20 ML VIAL IV ONE
[2023-07-16 11:02] VITALS: TEMP 97.6
--- NOTE | 2023-07-16 11:08 | P.GSHP ---
History of Present Illness H&P Date: 07/16/23 Chief Complaint: History of colon polyps The [id number] female. History of colon polyps. Patient's is history. Patient presents today for colonoscopy. Past Medical History Past Medical History: Cancer, GERD/Reflux, Liver Disease Additional Past Medical History / Comment(s): Lymphoma with radiation 2013; MIGRAINES,4 liver hemagiomas, chronic UTI's History of Any Multi-Drug Resistant Organisms: None Reported Past Surgical History: Cholecystectomy, Tubal Ligation Additional Past Surgical History / Comment(s): colonoscopy,EGD, lasik eye surgery Past Anesthesia/Blood Transfusion Reactions: Postoperative Nausea & Vomiting (PONV) Additional Past Anesthesia/Blood Transfusion Reaction / Comment(s): PT'S MOM ALSO HAVE HX PONV Smoking Status: Former smoker - Past Family History Father Family Medical History: Cancer Mother Family Medical History: Deep Vein Thrombosis (DVT) Medications and Allergies Home Medications Medication Instructions Recorded Confirmed Type Vit B Complex(Unk) 1 tab PO DAILY 07/14/23 07/16/23 History Vit D(Unk) 1 tab PO DAILY 07/14/23 07/16/23 History Allergies Allergy/AdvReac Type Severity Reaction Status Date / Time Beta-Blockers Allergy Rash/Hives Verified 07/16/23 10:33 (Beta-Adrenergic Bloc codeine Allergy Rash/Nightm Verified 07/16/23 10:33 sergio lamotrigine [From Lamictal] Allergy Rash/Hives Verified 07/16/23 10:33 Sulfa (Sulfonamide Allergy Rash/Hives Verified 07/16/23 10:33 Antibiotics) sulfite Allergy Rash/Hives Verified 07/16/23 10:33 corn AdvReac Unknown Verified 07/16/23 10:33 Surgical - Exam Vital Signs Temp Pulse Resp BP Pulse Ox 97.6 F 79 16 142/94 98 07/16/23 10:40 07/16/23 10:40 07/16/23 10:40 07/16/23 10:40 07/16/23 10:40 - General well developed, well nourished, no distress - Eyes PERRL - ENT normal pinna, normal nares - Neck no masses - Respiratory normal expansion - Cardiovascular Rhythm: regular - Abdomen Abdomen: soft, non tender Assessment and Plan Assessment: Colon polyps and lymphoma. We'll perform colonoscopy.
--- NOTE | 2023-07-16 11:26 | P.OP ---
Date of Procedure: 07/16/23 Preoperative Diagnosis: History of colon polyps Postoperative Diagnosis: Incomplete colonoscopy Procedure(s) Performed: Colonoscopy Anesthesia: MAC Surgeon: Alen Villanueva Pathology: none sent Condition: stable Disposition: PACU Description of Procedure: The patient's placed on the endoscopy table in the lateral position. She received IV sedation. Digital rectal exam was performed which revealed no abnormalities. The flexible colonoscope was then placed patient anus and passed throughout the colon. Scope passed in the sigmoid colon sigmoid tortuosity of the bowel. This point scope withdrawn and a pediatric scope was reinserted into the colon. The pediatric scope could not be advanced. The sigmoid colon secondary to tortuosity of the colon. This point scope withdrawn. The visualized sigmoid colon and rectum appeared normal. Scope was withdrawn for patient. Patient was scheduled for a barium enema.
[2023-07-16 11:50] VITALS: BP 97/54; PULSE 68; RESP 20
--- NOTE | 2023-07-16 15:25 | FL ---
EXAMINATION TYPE: FL barium enema w air contrast DATE OF EXAM: 07/16/2023 COMPARISON: NONE HISTORY: Incomplete colonoscopy TECHNIQUE: A double contrast barium enema study is performed. A total of 27 images obtained. Total dose area product (DAP) in uGy*m?, mGy*cm? (or similar): Cannot be obtained. FINDINGS: Supervisor Polishing view of the abdomen shows overall non-obstructive bowel gas pattern. Post surgical c hange in the pelvis. Scattered phleboliths noted. Assessment for small polypoid lesions limited due to retained debris throughout the colon. There is a redundancy of the sigmoid colon. Mild diverticulosis. No evidence of any mass or obstructing or constricting lesion throughout the colon. Appendix was filled and appeared normal. The terminal ileum was refluxed and appears within normal l imits. IMPRESSION: 1. Redundancy of the sigmoid colon with mild diverticulosis. 2. No sizable or colonic mass or annular constricting lesion. Assessment for small polypoid lesions is limited due to retained fecal debris throughout the colon. A small 4 to 5 mm polyp in the mid transverse colon is not excluded but may represent retained debris.
== END | disposition home or self-care (01) ==
LOC: ORWHC2ENDO 09:54
PROVIDERS: ATTEND Surgery
DX: Z12.11 Encounter for screening for malignant neoplasm of colon (principal); K21.9 Gastro-esophageal reflux disease without esophagitis; K76.9 Liver disease, unspecified; Z87.440 Personal history of urinary (tract) infections; Z92.3 Personal history of irradiation; Z90.49 Acquired absence of other specified parts of digestive tract; Z98.890 Other specified postprocedural states; Z87.891 Personal history of nicotine dependence; Z88.8 Allergy status to other drugs, medicaments and biological substances; Z88.5 Allergy status to narcotic agent; Z88.2 Allergy status to sulfonamides; Z85.72 Personal history of non-Hodgkin lymphomas; Z86.010 Personal history of colon polyps; F12.90 Cannabis use, unspecified, uncomplicated
CPT/HCPCS: 74280; 45330; J2405; J2704; 45378